=== PATIENT | female | born 1965 | race Caucasian/White ===

== ENCOUNTER 2023-10-30 22:09 | Inpatient (IN) | payer OTHER, SELFPAY ==
[2023-10-30] VITALS (29 sets, daily range): BP systolic 69–127; BP diastolic 36–72; BMI 21.0
[2023-10-30 18:22] LABS: Hematocrit 23.8 % (37.0-47.0); Hemoglobin 8.7 g/dL (12.0-16.0); Mean Corp Hgb Conc. 36.6 g/dL (33.0-37.0); Mean Corpuscular Hgb 32.5 pg (27.0-31.0); Mean Corpuscular Volume 88.8 fL (81.0-99.0); Mean Platelet Volume 9.7 fL (7.4-10.4); Platelet Count 340 10^3/uL (130-400); Red Blood Cell Count 2.68 10^6/uL (4.20-5.40); Red Cell Dist. Width 13.1 % (11.5-14.5); White Blood Cell Count 32.1 10^3/uL (4.8-10.8)
[2023-10-30 18:38] LABS: % Basophils 0.5 % (0-2); % Immature Granulocytes 1.2 % (0-0.5); % Lymphocytes 2.3 % (20.5-51.1); Absolute Basophils 0.2 10^3/uL (0-0.2); Absolute Immature Granulocytes 0.4 10^3/uL (0-0.05); Absolute Lymphocytes 0.7 10^3/uL (1.2-3.4); Absolute Monocytes 0.3 10^3/uL (0.1-0.6); Absolute Neutrophils 30.5 10^3/uL (1.4-6.5); Nucleated Red Blood Cells % 0 %
[2023-10-30 18:39] LABS: ALT (SGPT) 92 U/L (0-35); AST (SGOT) 176 U/L (14-36); Albumin 3.6 g/dl (3.5-5.0); Alkaline Phosphatase 98 U/L (38-126); Blood Urea Nitrogen 22 mg/dl (7-17); Calcium 8.9 mg/dl (8.4-10.2); Carbon Dioxide 20 mmol/L (22-30); Chloride 99 mmol/L (98-107); Glucose 140 mg/dl (70-99); Potassium 2.6 mmol/L (3.5-5.1); Sodium 132 mmol/L (135-145); Total Bilirubin 1.9 mg/dl (0.2-1.3); Total Protein 6.3 g/dl (6.3-8.2); eGFR 43.88
[2023-10-30 19:40] LABS: Iron 20 ug/dl (37-170); Magnesium 1.5 mg/dl (1.6-2.3)
[2023-10-30] MEDS: NSS 1000 IV ×3 (19:46→23:14)
[2023-10-30] MEDS: LOW STRENGTH ASPIRIN 324 MG PO (19:47)
[2023-10-30 19:49] LABS: Percent Saturation 7 % (20-50); Total Iron Binding Capacity 257 ug/dl (265-497)
[2023-10-30] MEDS: PROTONIX IV 80 MG IV (19:49)
[2023-10-30] MEDS: NITROSTAT (SUBLINGUAL) 0.4 MG SL (19:49)
--- NOTE | 2023-10-30 20:04 | ED.GENMED ---
History of Present Illness
General
Chief Complaint: Abnormal Lab Value
Source: patient and records
Exam Limitations: none
Time Seen by Provider: 10/30/23 18:51
Nursing documentation reviewed up to this point in time: agreed with
History of Present Illness
History of Present Illness:
Patient is a 57-year-old female who presents to the emergency department with chills and fatigue for the past 10 days with nausea and dry heaves. Patient denies hematemesis. Patient has had intermittent epistaxis for the past few months the last
being 2 nights ago from the left nostril. 8 days ago the patient while getting a manicure passed out was taken to the hospital. Patient has a history of hypokalemia and was found to be low again and reportedly had 2 bags of potassium at another
hospital. Patient had increased anxiety and signed out AMA. Patient is mildly anxious at this time. Patient had a temp of 100.7 at her doctor's office and now is reporting chills. Patient feels short of breath and states her chest hurts in
between breasts. Patient has noticed her weight increasing but denies any edema. Patient does have a history of hypertension but denies diabetes or cholesterol elevations. Patient is a ex-smoker. Patient's father at 52 of a massive ME.
Patient denies any melena or hematochezia. Patient denies diarrhea or constipation. Patient denies any symptoms. Patient had been on valsartan and hydrochlorothiazide but that was stopped 8 days ago. Patient also has had a cough that seems to
be improving of thick mucus
Past History
Past History
ED Past Medical History: Arrthythmia, HTN and Other (Kidney stones, migraines, neuropathy)
ED Past Surgical History: and Orthopedic
Social History
Tobacco: Former smoker
Alcohol: Occasional
Drug: None
Personal:
Living: with family
Employment: Employed
Review of Systems
Review of Systems
All Other Systems: ROS reviewed and negative except as documented in HPI and ROS
Constitutional: Reports fever, weight gain, fatigue and chills
EENT: Reports other (Epistaxis)
Respiratory: Reports cough and trouble breathing
Cardiac: Reports chest pain; Denies diaphoresis, palpitations or syncope
ABD/GI: Reports nausea, vomiting and anorexia; Denies abdominal pain, diarrhea, constipated, bloody stools or black stools
: Reports no symptoms
Musculoskeletal: Reports no symptoms
Skin: Reports no symptoms
Neurological: Reports no symptoms
Hematologic/Lymphatic: Reports no symptoms
Psychiatric: Reports no symptoms
Phy Exam
Physical Exam
Physical Exam:
Physical Exam
General: moderate distress, alert and appropriate, well nourished, well hydrated
HENT: Normocephalic, supple with no lymphadenopathy, no thyromegaly
Eyes: Clear sclera, conjuctiva without injection
Heart: Regular rhythm and rate. No S3, S4. No murmur. No NVD, bruit
Lungs: No respiratory distress, no stridor, lung sounds are coarse but clear and equal bilaterally, chest wall symmetrical and nontender
Abdomen: Soft, mild to moderate midepigastric tenderness without guarding or rebound, no organomegaly, no CVA tenderness, BS good. Rectal shows good sphincter tone and dark brown stool which is Hemoccult negative
Neuro: Alert and oriented x 3, CN II - XII intact, no motor focality, no cerebellar dysfunction
Skin: no rash
Psychiatric: well kept. interactive and cooperative
Extremities: No edema, cyanosis, tenderness, Good and equal peripheral pulses.
Course
Orders/Labs/Results
Orders:
Orders
10/30/23 18:00
Electrocardiogram (*1) Urgent
Reason for Study: Chest Pain
EKG- Treatment ONCE
10/30/23 18:11
Complete Blood Count/With Diff Urgent
Comprehensive Metabolic Panel Urgent
Ferritin Urgent
Comment: ADD ON
Folate Urgent
Comment: ADD ON
Iron Urgent
Comment: ADD ON
Magnesium Urgent
Comment: ADD ON
Total Iron Binding Urgent
Comment: ADD ON
Troponin I Urgent
Vitamin B12 Urgent
Comment: ADD ON
10/30/23 18:53
Add On- LAB Urgent
Tests Added?: magnesium, iron, TIBC, ferritin, folate, Vit B12
10/30/23 19:08
Type+Screen Urgent
10/30/23 19:26
Urinalysis Reflex To Culture Urgent
10/30/23 19:31
0.9% Sodium Chloride 1000 ml [Nss] 1,000 ml IV BOLUS
Aspirin Chewable [Low Strength Aspirin] 324 mg PO NOW STA
Nitroglycerin Sublingual [Nitrostat (Sublingual)] 0.4 mg SL NOW STA
Pantoprazole [Protonix IV] 80 mg IV NOW STA
10/30/23 19:39
Lactic Acid Q4H
Comment: CANCEL 2nd LACTIC ACID IF 1st LACTIC ACID IS LESS THAN 2
Blood Culture Urgent
JEANNIE Source: Blood/Venous
Specimen Description:
10/30/23 19:47
Heparin 4,000 units IV NOW STA
10/30/23 19:[address] Non Medication Order As Directed
Physician Order: PTT 6 hours after initial start of Heparin infusion
CR Chest Portable - 1 View Urgent
Comment:
Reason For Exam: sob
Reason Study Needs to be Portable: Patient Unstable
10/30/23 19:55
Blood Culture Routine
JEANNIE Source: Blood/Venous
Specimen Description:
Ibuprofen [Motrin] 600 mg PO NOW STA
Lorazepam [Ativan] 1 mg IV NOW STA
Magnesium Sulfate 2 Gram/50 ml [Magnesium Sulfate] 2 gram in 50 ml IV NOW
Ondansetron Injectable [Zofran] 4 mg IV NOW STA
Potassium Chloride [KCl] 40 meq PO NOW STA
10/30/23 19:57
PTT Urgent
Comment: Obtain baseline before beginning heparin infusion if not already collected
10/30/23 20:00
Heparin 85153 Units/250 ml 25,000 units in 250 ml IV PER PROTOCOL
Weight to be used for heparin protocol in kilograms (kg):: 73.1
Protocol:: Cardiac Tx/Acute Coronary
PTT Goal Range to be used:: PTT 73 to 111 seconds
Order type:: Initial
INITIAL Infusion Dose (UNITS/KG/hr) & then follow protocol:: 12 units/kg/hr
Infusion Dose in UNITS/hr & then follow protocol (UNITS/hr):: 900
INFUSION RATE in mL/hr & then follow protocol (mL/hr):: 9
PTT less than or equal to 64 seconds:: Increase rate by 200 units/hr (+ 2 mL/hr)
PTT 64.1 to 72.9 seconds:: Increase rate by 100 units/hr (+ 1 mL/hr)
PTT 73 to 111 seconds:: Target Range. No change in rate.
PTT 111.1 to 130.9 seconds:: Decrease rate by 100 units/hr (- 1 mL/hr)
PTT 131 to 199.9 seconds:: HOLD for 1 hr. Then decrease rate by 200 units/hr (- 2 mL/hr)
PTT greater than or equal to 200 seconds:: HOLD for 2 hrs & Notify Provider. Then decrease by 200 units/hr (-
2 mL/hr)
Lab follow-up:: Each change, PTT q6h until 2 consecutive are therapeutic. Then PTT
daily.
10/30/23 20:24
Potassium Chloride [KCl] 40 meq 0.9% Sodium Chloride 250 ml [Nss] 250 ml IV NOW
10/30/23 23:30
Lactic Acid Q4H
Comment: CANCEL 2nd LACTIC ACID IF 1st LACTIC ACID IS LESS THAN 2
Abnormal Lab Results
10/30/23
18:11
WBC 32.1 H 10^3/uL
(4.8-10.8)
RBC 2.68 L 10^6/uL
(4.20-5.40)
Hgb 8.7 L g/dL
(12.0-16.0)
Hct 23.8 L %
(37.0-47.0)
MCH 32.5 H pg
(27.0-31.0)
Abs Immat Gran (auto) 0.4 H 10^3/uL
(0-0.05)
Absolute Neuts (auto) 30.5 H 10^3/uL
(1.4-6.5)
Absolute Lymphs (auto) 0.7 L 10^3/uL
(1.2-3.4)
Immature Gran % 1.2 H %
(0-0.5)
Neutrophils % 95.0 H %
(42.2-75.2)
Lymphocytes % 2.3 L %
(20.5-51.1)
Monocytes % 1.0 L %
(1.7-9.3)
Sodium 132 L mmol/L
(135-145)
Potassium 2.6 L* mmol/L
(3.5-5.1)
Carbon Dioxide 20 L mmol/L
(22-30)
BUN 22 H mg/dl
(7-17)
Creatinine 1.4 H mg/dL
(0.6-1.0)
Glucose 140 H mg/dl
(70-99)
Magnesium 1.5 L mg/dl
(1.6-2.3)
Iron 20 L ug/dl
(37-170)
TIBC 257 L ug/dl
(265-497)
% Saturation 7 L %
(20-50)
Total Bilirubin 1.9 H mg/dl
(0.2-1.3)
AST 176 H U/L
(14-36)
ALT 92 H U/L
(0-35)
Troponin I 6.960 H* ng/ml
10/30/23 18:11
10/30/23 18:11
Vital Signs
Initial and Last Documented VS:
Initial Vital Signs
Temp Pulse Resp BP Pulse Ox
98.2 F 110 20 127/72 98
10/30/23 17:57 10/30/23 17:57 10/30/23 17:57 10/30/23 17:57 10/30/23 17:57
Last Documented Vital Signs
Temp Pulse Resp BP Pulse Ox
99.0 F 111 39 105/53 99
10/30/23 20:00 10/30/23 20:00 10/30/23 20:00 10/30/23 19:49 10/30/23 20:00
*Pulse Oximetry
Patient hypoxic: no
*EKG
Interpreted by ED Provider?: Yes
EKG Intrepretation Date: 10/30/23
EKG Intrepretation Time: 20:09
Interpretation: abnormal
Comparison EKG: changes noted
Heart Rate: 96
Rate: normal
Rhythm: sinus
[place]: normal axis
Interval: normal PA interval and long QT
QRS Pattern: normal QRS
Ischemia: non-specific ST changes
*Principal Associate Interpretation
Rate: tachycardiac
Interpretation: abnormal
Heart Rate: 105
Rhythm: sinus
*Critical Care Note
Total Time (30-74mins, 75-104mins- exclusive of procedures): 45 minutes
Update Note
Update Note:
Patient's white count is high and the etiology could be a stress reaction, infection or possible leukemia. In addition patient's troponin is elevated. Patient has mild renal insufficiency and this could be sepsis however given the longevity of the
patient's symptoms I would not be surprised if this is cardiac. Patient's potassium is low which is in her past medical history but so is her magnesium so that will be corrected. Patient is anemic and whether this is a reflection of the white
count or not. Patient has heme-negative stools. Patient will be anticoagulated. Patient will be admitted
ED Attending Note
-
Portions of this chart may have been created with voice recognition software.� Occasional wrong word or��sound alike� substitutions may have occurred due to the inherent limitations of voice recognition software.
Discharge Plan
Departure
Patient Disposition: Admit
Date of Disposition: 10/30/23
Time of Disposition: 20:31
Admit to: IMU
Admit to doctor: Hospitalist
Presentation/result/management discussed w/ accepting MD/DO: Hospitalist
Patient with high blood pressure during this ER visit?: No
Condition: Serious
Covid-19: Not Applicable
Discharge Problem:
Non-ST elevated myocardial infarction (non-STEMI), Elevated troponin, Leukocytosis, Iron deficiency anemia, Renal insufficiency, Hypokalemia, Hypomagnesemia
Prescriptions:
No Action
acetaminophen 325 mg Tablet
650 mg PO Q3HPRN PRN (Reason: mild pain/fever)
potassium 99 mg Tablet
99 mg PO DAILY
Referrals:
Radha Dixon CRNP [Family Provider] -
Interventions
Interventions:
*Risk Screen - Suicide Last Done: 10/30/23 18:38
*General Assessment Last Done: 10/30/23 18:38
*Neglect/Abuse Screening Last Done: 10/30/23 18:38
*ED COVID-19 Vaccine History Last Done: 10/30/23 18:38
Discharge Date and Time
Print Language: KAZAKH
[2023-10-30] MEDS: ATIVAN 1 MG IV (20:07)
[2023-10-30] MEDS: MAGNESIUM SULFATE 50 IV (20:08)
[2023-10-30] MEDS: MOTRIN 600 MG PO (20:13)
[2023-10-30 20:14] LABS: Lactic Acid 1.1 mmol/L (0.7-2.0)
[2023-10-30] MEDS: ZOFRAN 4 MG IV (20:16)
[2023-10-30] MEDS: KCL 40 MEQ PO (20:16)
[2023-10-30] MEDS: HEPARIN 25000 UNITS/250 ML IV (20:41)
[2023-10-30] MEDS: KCL 270 MEQ IV (20:44)
[2023-10-30] MEDS: HEPARIN 4000 UNITS IV (20:45)
--- NOTE | 2023-10-30 21:11 | EDRN ---
Dr. Cárdenas made aware of BP 76/38, bolus of NSS started.
--- NOTE | 2023-10-30 21:20 | EDRN ---
Admitting PA in room to evaluate patient.
[2023-10-30 21:24] LABS: Folate > 20.0 ng/ml (2.76-20); Vitamin B12 580 pg/ml (239-931)
--- NOTE | 2023-10-30 21:41 | EDRN ---
Admitting Hospitalist in room to evaluate patient
--- NOTE | 2023-10-30 21:54 | HPS.HSE ---
Family Physician
-
Family Physician: Radha Dixon
Chief Complaint
-
Chest Pain
History of Present Illness
Patient is a 57 y/o female with a PMH of hypertension who present to the ED for increased fatigue x 11-12 days. She states that for about 2 weeks she hasn't been feeling well. She admits to nausea without vomiting, anorexia, and diarrhea. She states
about a week ago she was feeling better and went to get a manicure where she passed out and hit her forehead on the table. She was taken to [facility] where she was found to have hypokalemia and received potassium before leaving [place]. The
hypokalemia was determined to be due to HCTZ which she discontinued. She was seen by her PCP and told to stop her losartan as well due to low blood pressure in the office. She also reports intermittent fevers with max temp 100.7. Two days ago she
started having chest tightness and shortness of breath. She admits to increased epistaxis and easy bruising. She denies melena, bloody stool, or hematemesis. She is post-menopausal.
Medical History
Past Medical History
Past Medical History: Reports Other
Additional Past Medical History:
Essential Hypertension
Past Surgical History: Reports Other
Additional Past Surgical History:
Section
Multiple Right Knee Surgeries
Lumbar Laminectomy with Fusion
Social History
Tobacco: Former Smoker (Quit around age 50)
Alcohol: Daily (3oz vodka nightly)
Family History
Family History: Early CAD (Father)
Allergies / Home Medications
Allergies reflects when Allergies were last updated in [facility].
Home Medications with original date entered in [facility]
Allergy/Medication List:
Allergies
Allergy/AdvReac Type Severity Reaction Status Date / Time
morphine Allergy Intermediate Unknown Verified 10/30/23 17:59
codeine [Codeine] Allergy Hives Verified 10/30/23 17:59
erythromycin base Allergy Unknown Verified 10/30/23 17:59
Penicillins Allergy Hives Verified 10/30/23 17:59
Home Medications
acetaminophen 325 mg tablet 650 mg PO Q3HPRN PRN mild pain/fever 10/30/23
potassium 99 mg tablet 99 mg PO DAILY 10/30/23
Review of Systems
-
A 12 point ROS was completed and negative except as noted: Yes
Constitutional: Reports Fever
Respiratory: Reports Trouble Breathing
Cardiac: Reports Chest Pain
Abdomen/GI: Reports Nausea and Anorexia
Physical Exam
Vital Signs
Vital Signs
Temp Pulse Resp BP Pulse Ox
99.0 F 116 22 80/36 95
10/30/23 20:00 10/30/23 21:23 10/30/23 21:23 10/30/23 21:23 10/30/23 21:23
Physical Exam
General: Conversant and Appears in Distress
HEENT: NormoCephalic and Anicteric
Respiratory: Non Labored Respirations and Decreased Breath Sounds (Bilateral bases)
Cardiac: S1/S2, Regular Rhythm and Tachycardia
GI: Soft and Tender (Mild epigastric region without rebound or guarding)
Rectal: Hem Negative (Per ED)
Musculoskeletal: No Clubbing, No Cyanosis and No Edema
Skin: Warm and Dry
Neuro: Awake, Alert, Oriented and Nonfocal/grossly intact
Psych: Anxious
Laboratory Results
-
10/30/23 18:11
10/30/23 18:11
Laboratory Results
APTT 34.0 Sec (23.4-35.0) 10/30/23 19:57
Lactic Acid Cancelled 10/30/23 23:30
Total Bilirubin 1.9 mg/dl (0.2-1.3) H 10/30/23 18:11
AST 176 U/L (14-36) H 10/30/23 18:11
ALT 92 U/L (0-35) H 10/30/23 18:11
Alkaline Phosphatase 98 U/L (38-126) 10/30/23 18:11
Troponin I 6.960 ng/ml H* 10/30/23 18:11
Data Reviewed
-
Diagnostic Radiology: Report Reviewed by me
Lab Data: Labs Reviewed by me
Impression/Plan
-
Septic Shock though source is unclear
-Admit to ICU
-Start Levophed
-Check COVID and Influenza
-Check Procalcitonin
-Check Blood Cultures
-Check urinalysis
-Hold on antibiotics
Elevated Troponin, possibly non-ischemic myocardia injury in setting of sepsis vs NSTEMI
-Consult Cardiology
-Continue heparin drip as started in ED
-Trend Troponin
-Check Echo in AM
Acute Kidney Injury
-Continue IVFs
-Monitor creatinine
Acute/Severe Hypokalemia
Hypomagnesemia
-Replace potassium and magnesium
-Recheck labs later tonight and in AM
Iron Deficiency Anemia, possibly acute blood loss following severe epistaxis
-Start IV iron
-Continue to heme-test stools - Negative in ED
-Trend Hgb
Elevated LFTS, possibly shock liver vs alcohol related
-Continue to trend
Prolonged QT
-Avoid QT prolonging medications
-Recheck ECG in AM after electrolyte correction
Alcohol Use Disorder
-Continue alcohol withdrawal protocol
DVT proph: Heparin Drip
Code Status: Full Code
[2023-10-30 22:21] LABS: COVID-19 Antigen Negative (Negative)
[2023-10-30] MEDS: LEVOPHED 250 IV (22:28)
--- NOTE | 2023-10-30 22:33 | EDRN ---
Pt started on Norepi d/t BP 74/54, MAP-62
[2023-10-30 22:36] LABS: Acetaminophen 36 ug/ml (10-30)
--- NOTE | 2023-10-30 22:39 | W.PN.UPDATE ---
Update Note
Progress Note Update
This is an addendum to the H&P written by Iva Trammell on 10/30/2023. Patient seen and examined independently with PA.
57-year-old female past medical history of hypertension here with several symptoms including generalized fatigue, decreased p.o. intake,, diarrhea, recent syncopal episode. She was recently at [facility] and treated for hypokalemia with
discontinuation of HCTZ and later losartan due to hypotension. She is also been having chest tightness and shortness of breath as well as fevers and chills over the past few days. He also had epistaxis twice with significant amount of blood loss.
# Septic shock, unclear source
-Does have some upper respiratory symptoms, chest x-ray without evidence of pneumonia
-Check COVID, influenza, procalcitonin
-Urinalysis pending
-Hold off antibiotic
-IV fluids
-Levophed as needed
# NSTEMI
-Aspirin, trend troponins, heparin drip, echo, cardiology
-Patient's primary care physician wanted CT PE to rule out pulmonary embolism however patient refusing IV contrast
# Acute kidney injury
-Prerenal
-IV fluids
# Severe hypokalemia/hypomagnesemia likely secondary to alcohol use
# QTc prolongation possibly resulting in syncope
-Replete
# Alcohol use disorder
-Alcohol withdrawal protocol
# Transaminitis secondary to alcohol
# Mixed iron deficiency/anemia of chronic disease secondary to epistaxis
-Hemoccult negative
-IV iron
[2023-10-30 22:55] LABS: Phosphorus 2.9 mg/dl (2.5-4.5)
--- NOTE | 2023-10-30 23:00 | PTCARENOTE ---
Rec'd pt from ER on stretcher & monitor, levophed gtt & heparin gtt, oriented to ICU routine, CHG bath done, pt anxious, cooperative, ST to keep sbp > 9- w/ levophed, see flow sheet for titrations, hep gtt at 900 units/hr, + pulses, no edema, skin
warm/dry, RA, lungs decr in bases, sat 97, + bowel sounds, intermittent nausea, requests no meds at this time, HNV yet- bladder scanned for 334 ml urine
--- NOTE | 2023-10-30 23:10 | W.PN.SEPSIS ---
Sepsis
Vital Signs
Temp Pulse Resp BP Pulse Ox
98.0 F 100 31 85/53 95
10/30/23 22:38 10/30/23 23:00 10/30/23 23:00 10/30/23 23:00 10/30/23 22:50
Physical Exam
Physical Exam:
A focused exam was performed after fluid resuscitation.
Capillary Refill
Lower Extremity:
Demetria Time: Less than 3 sec
Pulse Evaluation
Dorsalis Pedis:
Pulse Evaluation: Present
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
[2023-10-31] VITALS (49 sets, daily range): BP systolic 84–132; BP diastolic 39–87; BMI 21.2
[2023-10-31] MEDS: LR 500 IV (00:34)
--- NOTE | 2023-10-31 00:40 | PTCARENOTE ---
500LR bolus hung per order
[2023-10-31 03:13] LABS: Hematocrit 22.7 % (37.0-47.0); Hemoglobin 8.3 g/dL (12.0-16.0); Mean Corp Hgb Conc. 36.6 g/dL (33.0-37.0); Mean Corpuscular Hgb 33.1 pg (27.0-31.0); Mean Corpuscular Volume 90.4 fL (81.0-99.0); Mean Platelet Volume 10.3 fL (7.4-10.4); Platelet Count 312 10^3/uL (130-400); Red Blood Cell Count 2.51 10^6/uL (4.20-5.40); Red Cell Dist. Width 13.2 % (11.5-14.5); White Blood Cell Count 47.1 10^3/uL (4.8-10.8)
[2023-10-31 03:16] LABS: INR 1.65; PT 19.7 Sec (11.4-14.6)
[2023-10-31 03:30] LABS: ALT (SGPT) 83 U/L (0-35); AST (SGOT) 143 U/L (14-36); Alkaline Phosphatase 101 U/L (38-126); Blood Urea Nitrogen 22 mg/dl (7-17); Calcium 8.1 mg/dl (8.4-10.2); Carbon Dioxide 19 mmol/L (22-30); Chloride 109 mmol/L (98-107); Estimated Creatinine Clearance 45 ml/min; GGTP 82 U/L (12-43); Glucose 143 mg/dl (70-99); Magnesium 1.8 mg/dl (1.6-2.3); Phosphorus 3.1 mg/dl (2.5-4.5); Potassium 3.2 mmol/L (3.5-5.1); Sodium 137 mmol/L (135-145); Total Bilirubin 1.4 mg/dl (0.2-1.3); Total Protein 5.7 g/dl (6.3-8.2); eGFR 40.39
[2023-10-31] MEDS: MAGNESIUM SULFATE 100 IV (03:49)
[2023-10-31] MEDS: LR 1000 IV ×3 (03:50→19:58)
[2023-10-31 03:55] LABS: Procalcitonin > 200.00 ng/ml (0.0-0.25)
[2023-10-31 03:56] LABS: Urine Albumin Trace (Neg - Trace); Urine Bilirubin Negative (Negative); Urine Character Clear (Clear); Urine Color Yellow; Urine Glucose Negative (Negative); Urine Ketone Negative (Negative); Urine Leukocyte 2+ (Negative); Urine Nitrite Negative (Negative); Urine Occult Blood 2+ (Negative); Urine Urobilinogen Negative (Neg - 1+)
[2023-10-31] MEDS: KCL 270 MEQ IV (03:57)
--- NOTE | 2023-10-31 04:00 | PTCARENOTE ---
Sys reviewed, pt diaphoretic, goan & linens changed, bladder scanned for 480 ml, unable to use bedpan, assisted to BSC voided 450ml dark foul smelling krupa urine, ua sent per order, Lauren Miguel np aware of critical lab values, orders rec'd, 40
kcl/250 ml hung over 4 hr for K-3.2, 1 gm mag over 1hr hung for Mag- 1.8, IVF changed to LR at 125ml/hr per order, antibiotics ordered for pro stephanie > 200
[2023-10-31 04:01] LABS: TSH Reflex To Free T4 0.12 uIU/ml (0.47-4.68)
[2023-10-31] MEDS: VANCOCIN 540 MG IV (04:55)
[2023-10-31] MEDS: LEVOPHED 250 IV (05:01)
[2023-10-31] MEDS: STERILE WATER FOR INJECTION 10 ML IV ×2 (05:03→17:50)
[2023-10-31] MEDS: MAXIPIME 2000 MG IV ×2 (05:03→17:51)
[2023-10-31 05:12] LABS: Urine Bacteria Many (Negative); Urine Red Blood Cell 0-2 /HPF (0-2); Urine Squamous Cell 0-2 /LPF (Few); Urine White Cell 26-30 /HPF (0-5)
[2023-10-31 05:20] LABS: Free T4 2.52 ng/dl (0.78-2.19)
--- NOTE | 2023-10-31 07:29 | CON.INTV ---
Consultation
Consultation Request
Date/Time Consultation Requested: 10/31/2023-8 AM
Date/Time Consultation Performed: 10/31/2023-8 AM
Requesting Provider: Hospitalist
Performing Provider: Dr. Pichardo
Reason for Consultation: Sepsis
Medical History
-
Chief Complaint: Sepsis
History of Present Illness:
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
sepsis/shock/critical care management 10/27/2023. She continues to complain of significant epigastric abdominal pain. She has mild nausea. She denies any shortness of breath at rest, chest pain, pleurisy, hemoptysis, chest congestion, leg swelling
or focal weakness. She is anxious. She quit smoking 7 years ago. She vapes all day.
Past Medical History
Past Medical History: None (Hypertension. Anxiety. . Multiple right knee surgeries. Lumbar laminectomy with fusion.)
Social History
Tobacco: Vaping (83-yewc-aiit quit 7 years ago)
Alcohol: Daily
Drug: None
Personal:
Living: With Family
Occupational Exposures: No known tuberculosis exposure
Environmental Exposures: No known asbestos exposure
Family History
Family History: Other (CAD-father)
Allergies / Home Medications
Allergies
Allergy/AdvReac Type Severity Reaction Status Date / Time
morphine Allergy Intermediate Unknown Verified 10/30/23 17:59
codeine [Codeine] Allergy Hives Verified 10/30/23 17:59
erythromycin base Allergy Unknown Verified 10/30/23 17:59
Penicillins Allergy Hives Verified 10/30/23 17:59
Home Medications
�Medication �Instructions �Recorded �Confirmed �Last Taken �Type
acetaminophen 325 mg tablet 650 mg PO Q3HPRN PRN mild 10/30/23 10/30/23 Unknown History
pain/fever
potassium 99 mg tablet 99 mg PO DAILY 10/30/23 10/30/23 Unknown History
Review of Systems
-
Unable to Obtain full review of systems at this time due to: Other (Per HPI)
Vitals / Labs / Diagnostic Testing
Vital Signs
Temp Pulse Resp BP Pulse Ox
98.9 F 82 30 100/55 94
10/31/23 07:10 10/31/23 06:00 10/31/23 06:00 10/31/23 06:00 10/31/23 05:45
Lab Data
10/31/23 02:57
Laboratory Results
10/30/23 10/31/23 10/31/23
19:57 02:56 02:56
PT 19.7 H Cancelled
INR 1.65
APTT 34.0
10/31/23
02:56
PT
INR Cancelled
APTT 96.0 H
Microbiology
10/30/23 21:57 Nasal Swab Influenza Types A & B (FELIPE) - Final
Negative for Influenza A & B, NAAT
Negative results must be combined with clinical observations
and patient history.
Nucleic Acid Amplification test (NAAT)performed on the
[employer] platform.
Diagnostic Testing:
Physical Exam
-
Exam:
Well-nourished and well-developed in no apparent distress
HEENT-atraumatic, normocephalic
Neck-supple, no JVD, no bruit
Heart-regular rate and rhythm-no murmurs, rubs or gallops
Chest-clear to auscultation, no wheezes, crackles
Back-no tenderness
Abdomen is soft, tender in the epigastric area with mild guarding but no rebound
Extremities-no cyanosis, clubbing, edema and good peripheral pulses
Integument-intact, no rashes, lesions or ecchymosis
Neurology-alert and oriented, nonfocal motor and sensory exam
Assessment
-
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
sepsis/shock/critical care management 10/27/2023.
Sepsis with shock unresponsive to fluids requiring pressors
Recent syncope-evaluated at [facility] earlier this week
Abdominal/epigastric pain
Bacteremia-Klebsiella pneumoniae-10/30/2023
Elevated troponin-suspect non-STEMI
ROSA
Profound leukocytosis-WBC 47,000
Metabolic acidosis
Lactic acidosis
Mild hyperglycemia
Hypokalemia
Anemia-iron deficiency
Elevated LFTs
Elevated acetaminophen level-36
Prolonged QT
Alcohol use disorder
Markedly elevated procalcitonin-greater than 200-in the setting of ROSA
TSH low-0.12 with elevated free T4-rule out hyperthyroid
EF reduced 45-50%
Moderate mitral regurgitation
Conditions present prior to admission:
Hypertension.
Anxiety.
Pneumothorax right side 23 years ago-iatrogenic during 'nerve block'
Former hhikji-39-swlc-year quit 50 years old
. Multiple right knee surgeries. Lumbar laminectomy with fusion.
Plan
Admit patient to medical intensive care unit for persistent hypotension despite fluid resuscitation requiring pressors
Supplement oxygen as needed
High flow oxygen if needed
BiPAP if necessary
Intubate and mechanically ventilate if necessary
Aspiration precautions
Nebulizers if needed
Obtain cultures
Blood cultures with Klebsiella
Empiric antibiotics
Infectious disease consultation pending
Monitor leukocytosis
Check C. difficile
Fluid resuscitation with 30 mL/kg crystalloid-preferably lactated ringer-(less ROSA) with subsequent boluses as needed
Monitor lactate
Follow CVP if possible
Attempt noninvasive bedside tissue perfusion evaluation to see if fluid bolus responsive
Measure pulse pressure and stroke volume variation if patient on ventilator, passively breathing without arrhythmia and with temporary large tidal volume ventilation and if > 13% then likely fluid bolus responsive
If patient active then consider measuring bedside leg lift for 3 minutes and if cardiac output increases or if there is a rise of 2-4 on end-tidal CO2 then fluid bolus
If bedside ultrasound available then measure IVC diameter variation to evaluate for fluid bolus responsiveness
Begin pressors as needed for MAP goal of 65-Norepinephrine first, then Vasopressin and consider Angiotensin II if continues to be hypotensive
Consider methylene blue if available-specific inhibitor of induced nitric oxide synthase iNOS and its downstream enzyme soluble guanylate cyclase-noninferiority study shown to reduce time to vasopressor discontinuation, decreased ICU length of stay,
hospital stay but no change in mortality-published Critical Care 06/19/2022
If persistently hypotensive then consider checking random cortisol-hydrocortisone if random less than 3, if 3-15 then consider ACTH stimulation test
If persistently hyperthermic then correcting hyperthermia can decrease pressor requirements, increased chances of reversal of shock and decrease mortality
With significant epigastric pain and gram-negative bacteremia obtain CT abdomen
PPI
Trend LFTs
Elevated acetaminophen level noted-no intentional overdose by history, was taking Tylenol for pain
Consider GI evaluation
Significantly elevated WBCs-possible leukemoid reaction versus related to infection-can be significantly elevated with with C. difficile as well-pending
Consider hematologic evaluation if does not improve
Consider nephrology evaluation if renal function does not improve
Trend troponin
Echocardiogram noted-possible PA preadmission
Consider cardiac catheterization
Significant anxiety
Consider psychiatric consultation
Ongoing smoking cessation counseling
Vaping cessation counseling ongoing
DVT prophylaxis
Early nutrition if possible
Early mobilization/bedside range of motion
Outpatient pulmonary [id number], low-dose lung cancer screening CT, ongoing smoking and vaping cessation counseling
Critical care statement: A total of 55 minutes of critical care time was provided for this patient today. This includes management of unstable vital signs, evaluation of the patient at bedside, reviewing the patient's pertinent medical records
including radiographs, microbiology, laboratory evaluations, and discussion with primary team, consultants, pharmacy, nutrition, physical therapy, case management, charge nurse, critical care nursing, and respiratory therapy.
Diagnostic data:
Chest x-ray 01/15/2018-emphysema, no acute chest pathology
Chest x-ray 06/04/2018-rib x-rays as well, lungs compatible with underlying emphysema, no focal airspace disease, no displaced left-sided rib fractures
Chest x-ray 10/30/2023-NAD
Blood culture 10/30/2023-positive Klebsiella pneumonia
Echocardiogram 10/27/2023-EF 45-50%, mild to moderate mitral regurgitation, PA systolic estimated 35-40
Data Reviewed
-
EKG: Report reviewed by me
Radiology: Report reviewed by me
Ultrasound: Report reviewed by me
Medical Tests (Nuc Med, Echo etc): Image personally visualized and interpreted
Old Records: Reviewed
Critical Care Time (in minutes): 55
--- NOTE | 2023-10-31 07:45 | PTCARENOTE ---
Assumed care of patient. Pt rec'd sleeping. at bedside and attempted to wake pt. Pt screaming...'get away from me'...'you are a dirty person'...'you aren't a doctor'. Will not allow physical assessment by RN or MD. Pt pinching and
digging nails into staff arms. Confused...agitated. Pt on med sitter...safe environment confirmed. Will continue to monitor closely.
--- NOTE | 2023-10-31 08:07 | CON.CAR ---
Consultation
Consultation Request
Date/Time Consultation Requested: 10/31/2023 8 AM
Date/Time Consultation Performed: 10/08/2023 807
Requesting Provider: Hospitalist
Performing Provider: Dr. Thornton
Reason for Consultation: Abnormal troponin
Medical History
-
History of Present Illness:
57-year-old woman who was admitted to the ICU with suspected sepsis.
Patient had a patient not felt well for about 12 days. On 10/19/2023 she states she had dry heaves and the chills at night chest felt sore to touch. She continued to have dry heaves and and chills throughout the weekend and generally felt fatigued.
She was taken Tylenol for her fever. She started to feel better and went for a nail appointment and while seated in the chair had a syncopal event she was evaluated at [facility] hospitalization was recommended but she said she had anxiety and
left AGAINST MEDICAL ADVICE. Potassium was low so she received potassium replacement and HCTZ was discontinued apparently losartan was also discontinued. She continued to have issues with daily chills but denied having recurrent chest discomfort
or shortness of breath no additional abdominal pain. No rash. Patient eventually saw her PCP and both PCP and family convince her to go to the hospital.
Labs notable for leukocytosis with white blood cell count 47. Severe anemia with a hemoglobin 8.7 on admission and currently 8.38.7 and currently 8.3. Hypokalemia with potassium of 2.6. Initial troponin 6.9 which is since trended down and
creatinine 1.5.
She has not had chest discomfort she has had some shoulder discomfort initially points to her right shoulder but she says she sometimes has in the left shoulder. No abdominal pain she does have some ongoing nausea.
No prior cardiac history
Previous history of smoking quit cigarettes age 50. Still vapes. Family history of coronary disease includes father who had an WI in his 40 or 50s. Patient denies having history of diabetes or hypercholesterolemia.
No recent surgery or dental work..
Past Medical History
Past Medical History: Other (Hypertension)
Past Surgical History: Other (Lumbar laminectomy, , multiple right knee surgeries)
Social History
Tobacco: Former Smoker (Quit around age 50)
Family History
Family History: CAD
Allergies / Home Medications
Allergy/AdvReac Type Severity Reaction Status Date / Time
morphine Allergy Intermediate Unknown Verified 10/30/23 17:59
codeine [Codeine] Allergy Hives Verified 10/30/23 17:59
erythromycin base Allergy Unknown Verified 10/30/23 17:59
Penicillins Allergy Hives Verified 10/30/23 17:59
�Medication �Instructions �Recorded �Confirmed �Type
acetaminophen 325 mg tablet 650 mg PO Q3HPRN PRN mild 10/30/23 10/30/23 History
pain/fever
potassium 99 mg tablet 99 mg PO DAILY 10/30/23 10/30/23 History
Review of Systems
-
All other systems: Negative unless noted
Physical Exam
Vital Signs
Temp Pulse Resp BP Pulse Ox
98.9 F 82 30 100/55 94
10/31/23 07:10 10/31/23 06:00 10/31/23 06:00 10/31/23 06:00 10/31/23 05:45
Lab Results
10/31/23 02:57
Troponin I 4.750 ng/ml H* 10/31/23 02:57
Physical Exam
General: Well Developed, Well Nourished, No Apparent Distress and Other (Anxious sometimes became tearful is describing her symptoms)
HEENT: Normocephalic, Anicteric and Moist Mucous Membranes
Respiratory: Clear, Wheezes and Rhonchi
Cardiac: Regular Rhythm
GI: Soft, Non Tender and Non Distended
Skin: Warm, Dry, Rash (none) and Other (Unable to evaluate nailbeds due to nail amharic on toes and fingers)
Neuro: Awake, Alert and AO x 3
Hematologic/Lymphatic: No Lymphadenopathy
Psych: Other (Anxious at times a bit tearful)
Impression / Plan
-
57-year-old woman with a history of hypertension whose had issues with nausea and vomiting and shaking chills and fatigue for about 12 days. Patient noted to have troponin of 6 which has been trending down since admission also noted to have
significant anemia with hemoglobin 8.3, white blood cell count 4.7 hypokalemia and creatinine 1.3.
Fever/chills. Concerning for sepsis. With combination of issues above including abnormal troponin would also consider the possibility of endocarditis.
-Broad-spectrum antibiotics
-Await culture
-Additional evaluation by primary team for sources of infection
-Echocardiogram.
.
Abnormal troponin. Elevation of 6. Exact etiology unclear. She had some chest discomfort last weekend which she makes it sound as if it was musculoskeletal and related to heaves although she is not currently having that symptom she is also had
some shoulder discomfort which is atypical for coronary ischemia. Unclear if patient may have had an WI prior to admission with trending down of troponin. Also would consider other factors including sepsis myocarditis or endocarditis which could
contribute.
-Echocardiogram
-Cultures.
.
Syncope. Occurred prior to evaluation at [facility] earlier this week. May have been related to hypotension and volume depletion in the setting of suspected infection, nausea and vomiting, diuretic and antihypertensive medication. Continue to
monitor blood pressures.
.
Hypokalemia. Patient had previously been on HCTZ also has had recurrent nausea and vomiting. Replacement directed by primary team
.
Prolonged QT. Replace potassium and reassess avoid medications that prolong QT
.
Leukocytosis. White blood cell count 47. May be reactive related to issues noted above. However with combination of leukocytosis and marked anemia need to consider possibility of underlying hematologic condition. Evaluation as directed by
primary team
.
Anemia. Etiology unclear. No evidence of acute bleeding. Continue to evaluation as directed by the hospitalist.
.
Anxiety. Patient appears a bit anxious. Apparently this impacted her decision to leave [facility]. At times appears anxious and a bit tearful but cooperative. Management directed by primary team
Data Reviewed
-
EKG: Report Reviewed by me
Radiology: Report Reviewed by me
Medical Tests (Nuc Med, Echo etc): Discussed with Physician
Labs: Discussed with Physician
--- NOTE | 2023-10-31 08:15 | PTCARENOTE ---
Assumed care of patient. Pt rec'd A&Ox3.. pleasant. Anxious and tearful at times. On MSAS...max 1-2. JOHN's. S1 S2 reg w/ NSR. +PP. No edema. Knee hi SCD's on. On R/A...sats 93%. Lungs clear...diminished in bases. Frequent dry NPC.
Abdomen round...+BS. On clear liquid diet. Voids in bathroom. Dempsey skin....ecchymotic over left eye. IVF's, KCL rider, levophed gtt, and heparin gtt infusing....see interventions. VSS. Call reynoso within reach. Will continue to monitor closely.
[2023-10-31] MEDS: PROTONIX IV 40 MG IV (08:23)
[2023-10-31] MEDS: NSS (PRESERVATIVE FREE) 10 ML IV (08:23)
[2023-10-31] MEDS: THIAMINE INJECTION 200 MG IV ×2 (08:25→19:58)
[2023-10-31] MEDS: FOLVITE 1 MG PO (08:26)
[2023-10-31] MEDS: LOW STRENGTH ASPIRIN 81 MG PO (08:27)
--- NOTE | 2023-10-31 08:30 | PTCARENOTE ---
Pt calmer at present. Son at bedside and pt is directable by son. Agreeable to physical assessment...following commands. Knows name, son's name, and understands that she is in the hospital. Able to take po meds whole w/ sips of OJ/water. S1 S2
reg w/ NSR/prolonged QT on monitor. +PP. Trace LLE. Rec'd on 8L MFNC...able to decrease O2 to 5L MFNC...sats 92% and above. Lungs diminished in bases w/ fine crackles R>L. Occasional dry NPC. Abdomen round...+BS. Breakfast ordered. [place]
draining clear yellow urine. Skin pale in color. Intact sacral optifoam. Heparin gtt infusing @ 1000 units/hr. VS documented. Family at bedside...updated on plan of care. Bed alarm on.
--- NOTE | 2023-10-31 10:44 | CON.ID ---
Consultation
-
Date/Time Consultation Requested: 10/31/23 8:48
Date/Time Consultation Performed: 10/31/23 10:44
Requesting Provider: Dr Branham
Performing Provider: Dr Adams
Reason for Consultation: septic shock
Chief Complaint / Past History
Chief Complaint
Chest Pain
History of Present Illness
Ms Pro is a 57 year old female with past medical history of HTN and anxiety. She is a challenging historian in that she persistently provides her own interpretation of the causes of symptoms when queried and her responses can be long and
tangential; it can be difficult to get her to clarify as to the actual symptoms she is expressing. Her history to me is different from what she provided to other providers in the ER. RN at the bedside and Cardiology team are also noticing that her
story seems inconsistent.
Told our RN that she was previously on high doses of anxiolytics with a psychiatrist which she has now self stopped and substituted to marijuana only.
My impression of her history is as follows. She believes symptoms began that starting last February she had some L shoulder pain and back pain that she attributed to the flu shot. Additionally she felt some nasal stuffiness that was very
concerning to her. No cough or sputum production at that time. She started mucinex on her own and felt that 'slowly through time' helped with the nasal congestion. Then in June of this year she again felt that she had L shoulder pain and 'my
chest was just so full of mucous' but she denied productive cough at that time. Saw here PCP who diagnosed her with bronchitis. Covid ag testing neg x2 at that time. By her report she was prescribed a zpac x5 days and 10 day course of doxycycline
concomitantly. She took both. Then in july/august she expressed a blood clot from her L nostril, no ongoing epistaxis. She is not up to date on routine cancer screenings. She had a pap smear. No low dose CT chest yet though PCP has recommended
it for 20 pack year smoking history. Never had a mammogram. Had a colonoscopy at some point at another institution, she believes she is due for a repeat.
Drinking 3 oz of EtOH per day
Current issue seems to have begun about 1 week ago with persistent shaking chills and nausea with dry heaves for about 3 days. She adamantly denies diarrrhea to me 'Isidra told folks multiple times no diarrhea.' No flank pain, dysuria, urgency or
frequency. [place] a bit better but then fainted, struck her head and was taken to [facility] ER where a CT head was reportedly nonrevealing. She was found to have hypokalemia, was was told to stop HCTZ. She left AMA. Saw her PCP who noted hypotension
in the office and additionally stopped losartan. Since then she has developed fevers to 100.7, then developed chest tighteners, and shortness of breath. She presented here for further assessment.
Since arrival here she has been afebrile, bp unstable requiring norepi peaked at 10 mcg/min now down to 4 mcg/min, wbc 32 on arrival now 47, hgb 8.3, plt 312, K on arrival 2.6 now 3.2, cr 1.4 best available baseline is from 2018 and 0.6, na 132 now
137, PT 19.7, INR 1.65, ptt 96 (on heprin), lactic acid 1.1, t bili 1.4, ggt 82, ast 143, alt 83, alk phos 101, tropes began at 6.9 and now 4.7, no eos on the diff, procal was sent and is >200, CXR no acute CP process, ua: 26-30 wbc/hpf and many
bacteria, few squamous cells, single blood culture with K pneumoniae. Echo with possible apical hypokinesis. EKG without definite AR. Currently on vancomycin and cefepime.
Past History
Additional Past Medical History:
HTN
Anxiety
Additional Past Surgical History:
Lumbar spinal fusion - she is unsure of the levels
R knee surgery with screws
C section
Allergy History:
morphine Allergy (Intermediate, Verified 10/30/23 17:59)
Unknown
codeine [Codeine] Allergy (Verified 10/30/23 17:59)
Hives
erythromycin base Allergy (Verified 10/30/23 17:59)
Unknown
Penicillins Allergy (Verified 10/30/23 17:59)
Hives
Medications Reviewed: Yes
Social History
Tobacco: Former Smoker (20 pack year history)
Alcohol: Daily (3oz vodka nightly)
Drug: None (adamantly denies any drug use beyond marijuana; endorses very stressful life circumstances but doesnt elaborate. Shares that her daughter in law is supportive.)
Family History
Family History: Sudden (due to AR - father)
Review of Systems
Review of Systems
General: Chills; Negative Fever
All systems: All other systems were reviewed and were negative
Vital Signs
Temp Pulse Resp BP Pulse Ox
98.9 F 82 30 100/55 94
10/31/23 07:10 10/31/23 06:00 10/31/23 06:00 10/31/23 06:00 10/31/23 05:45
Physical Exam
Physical Exam
Constitutional: No Acute Distress and Non-toxic
Cardiovascular: Regular Rate and S1/S2; Negative Murmur or Rub
Pulmonary: Clear and Symmetric; Negative Wheezes, Rales or Rhonchi
Gastrointestinal: Soft, Non Tender, Non Distended and Normal Bowel Sounds
Genito-Urinary: Negative Suprapubic Tenderness or CVA Tenderness (even with firm percussion)
Skin: Warm and Dry; Negative Rash or Jaundice
Neurological: Other (becomes markedly tearful when I ask if she has had stress in her life recently)
Lab / Diagnostic Study Results
10/31/23 02:57
Abs Immat Gran (auto) 0.4 10^3/uL (0-0.05) H 10/30/23 18:11
Absolute Neuts (auto) 30.5 10^3/uL (1.4-6.5) H 10/30/23 18:11
Absolute Lymphs (auto) 0.7 10^3/uL (1.2-3.4) L 10/30/23 18:11
Absolute Monos (auto) 0.3 10^3/uL (0.1-0.6) 10/30/23 18:11
Absolute Basos (auto) 0.2 10^3/uL (0-0.2) 10/30/23 18:11
Immature Gran % 1.2 % (0-0.5) H 10/30/23 18:11
Neutrophils % 95.0 % (42.2-75.2) H 10/30/23 18:11
Lymphocytes % 2.3 % (20.5-51.1) L 10/30/23 18:11
Monocytes % 1.0 % (1.7-9.3) L 10/30/23 18:11
Eosinophils % 0.0 % (0-6) 10/30/23 18:11
Basophils % 0.5 % (0-2) 10/30/23 18:11
PT 19.7 Sec (11.4-14.6) H 10/31/23 02:56
PT Cancelled 10/31/23 02:56
INR 1.65 10/31/23 02:56
INR Cancelled 10/31/23 02:56
Lactic Acid Cancelled 10/30/23 23:30
Procalcitonin > 200.00 ng/ml (0.0-0.25) H* 10/31/23 02:56
Ur Squamous Epith Cells 0-2 /LPF (Few) 10/31/23 03:35
Microbiology Results
Micro:
10/30/23 19:39 Blood Culture - Preliminary
Blood/Venous Klebsiella pneumoniae
Gram Stain - Final
10/31/23 03:35 Urine Culture - Pending
Urine
10/31/23 02:56 Blood Culture - Pending
Blood/Venous
10/30/23 21:57 Influenza Types A & B (FELIPE) - Final
Nasal Swab Negative for Influenza A & B, NAAT
Negative results must be combined with clinical observations
and patient history.
Nucleic Acid Amplification test (NAAT)performed on the
[employer] platform.
Assessment / Plan
Shock - septic, may also have a component of cardiogenic shock
Klebsiella bacteremia - possible source
Leukocytosis - borderline Leukemoid Reaction
Long QTc
Anxiety
- blood cultures x3, first set with klebsiella which may be a urinary source
- repeat blood cultures are not usually needed for GNR bacteremia
- if urine culture is not revealing then I will purse other sources
- would be unusual for a UTI to cause this degree of illness, suspect she may have more than one illness (such as takotsubo physiology or AR) which is also driving the shock. UA is positive with minimal squamous cells, will follow up the urine
culture - UTI can occasionally present with nausea as the most prominent symptom. She does not have CVA tenderness to suggest pyelonephritis at this time.
- TTE complete: mildly reduced EP with anterior and apical hypokinesis, no vegetation - patient was under enough stress/anxiety that she left another hospital AMA, also fainted, - takotsubo physiology and possible component of cardiogenic shock? AR?
assessment per cardiology
- has prn anxiolytics for msas, might also consider other forms of emotional support - perhaps a psychiatry consult if she is agreeable
- I am verbally told that the primary team already plans a CT abdomen - will follow up
- if there is liquid stool check C diff ag/toxin given borderline leukemoid reaction
- manual diff
- agree that this may be reactive, further workup pending course
- procalcitonin not interpretable in the setting of ROSA and also significant shock, please do not resend while patient in [place].
- continue cefepime - appears to be clinically responding
- stop vancomycin
- follow clinically; patient is critically ill
Care Review
Plan reviewed with: Nurse (compared histories which had discrepancies) and Physician (Dr Thornton - echo)
--- NOTE | 2023-10-31 11:00 | W.PN.UPDATE ---
Update Note
Progress Note Update
Echocardiogram with mildly reduced left ventricular function with estimate ejection fraction 45 to 50%. There were some focal wall motion abnormalities with some distal septal, distal anteroseptal, distal anterior and apical hypokinesis. With
combination of troponin and the above findings it is possible patient had NE prior to presentation. No clear evidence of endocarditis on echo images. There was mild to moderate mitral regurgitation. Would work on the presumption that wall motion
abnormalities represent recent infarct although other possibilities do exist .. Takotsubo can cause troponin elevation and wall motion abnormalities involving the distal LV but echo findings are not classic for Takotsubo
-Continue to monitor on telemetry
-Continue aspirin
-Add beta-jese when blood pressure will allow
-Optimize treatment of anemia.
-Continue treatment for sepsis. Note blood culture from 10/30/2023 with Klebsiella
-Would eventually consider cardiac catheterization but patient is not currently having chest discomfort and requires additional treatment for sepsis and anemia.
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
--- NOTE | 2023-10-31 12:00 | PTCARENOTE ---
No major changes in physical assessment since am. LR and heparin gtts infusing. VS documented. Call reynoso within reach. Will continue to monitor.
[2023-10-31] MEDS: OMNIPAQUE 50 ML PO (13:06)
[2023-10-31] MEDS: FERRLECIT 110 MG IV (13:07)
[2023-10-31 13:46] LABS: Blood Urea Nitrogen 17 mg/dl (7-17); Calcium 7.7 mg/dl (8.4-10.2); Carbon Dioxide 16 mmol/L (22-30); Chloride 109 mmol/L (98-107); Estimated Creatinine Clearance 61 ml/min; Glucose 113 mg/dl (70-99); Magnesium 1.8 mg/dl (1.6-2.3); Potassium 3.5 mmol/L (3.5-5.1); Sodium 133 mmol/L (135-145); eGFR 58.61
--- NOTE | 2023-10-31 14:25 | W.PN.HOSP.TC ---
Today's Communication/Plan
-
Abdominal pelvis CT with oral contrast--continue to monitor vital signs-continue cefepime-continue [id number] on urine culture result
Assessment / Plan
Assessment / Plan
57 year old female
#Septic shock: bp unstable requiring Levophed peaked at 10 mcg/min now down to 4 mcg/min, possible cardiogenic shock component--wbc 32 on arrival now 47. blood culture x 3, first set positive for Klebsiella bacteremia (may be urinary
source)--CXR:No acute cardiopulmonary process--Await urine culture. appreciate ID--DC Vanco, continue cefepime--appreciate cardiology--troponin downtrending--TTE shows mildly reduced left ventricular function with estimate ejection fraction 45 to
50%.With combination of troponin and the above findings it is possible patient had AL prior to presentation. No clear evidence of endocarditis on echo images. Wall motion abnormalities might represent recent infarct although other possibilities do
exist. Takotsubo can cause troponin elevation and wall motion abnormalities involving the distal LV but echo findings are not classic for Takotsubo.Continue aspirin--Add beta-jese when BP will allow-- abdominal pelvis CT with oral contrast
ordered (RUQ pain)
# Hypokalemia: K on arrival 2.6 now 3.5--resolved--continue to replete as needed
# Prolonged QT: Replete potassium and magnesium as needed--avoid medications that prolong QT
#Leukocytosis. White blood cell count 47. May be leukemoid reaction. Continue to trend white cell count for now.
#Anemia: Iron deficiency--etiology unclear. No evidence of acute bleeding. Continue to monitor for significant drop needing possible transfusion.
#Anxiety: Patient is anxious and a bit tearful. Consider psych consult tomorrow.
Anticipated Discharge: > 48 hours
Subjective/Interval History
-
Date of Service: October 31, 2023
Objective Data
-
Labs:
Laboratory Results
10/31/23 10/31/23 10/31/23
02:56 02:56 02:56
WBC
Hgb
Hct
Plt Count
PT 19.7 H Cancelled
INR 1.65 Cancelled
APTT 96.0 H
Sodium Cancelled
Potassium
Chloride
Carbon Dioxide
BUN
Creatinine
Glucose
Calcium
Total Bilirubin
AST
ALT
Alkaline Phosphatase
10/31/23 10/31/23 10/31/23
02:56 02:56 02:56
WBC
Hgb
Hct
Plt Count
PT
INR
APTT
Sodium 137
Potassium Cancelled 3.2 L
Chloride Cancelled 109 H
Carbon Dioxide Cancelled
BUN
Creatinine
Glucose
Calcium
Total Bilirubin
AST
ALT
Alkaline Phosphatase
10/31/23 10/31/23 10/31/23
02:56 02:56 02:56
WBC
Hgb
Hct
Plt Count
PT
INR
APTT
Sodium
Potassium
Chloride
Carbon Dioxide 19 L
BUN Cancelled 22 H
Creatinine Cancelled 1.5 H
Glucose Cancelled
Calcium
Total Bilirubin
AST
ALT
Alkaline Phosphatase
10/31/23 10/31/23 10/31/23
02:56 02:56 02:57
WBC 47.1 H*
Hgb 8.3 L
Hct 22.7 L
Plt Count 312
PT
INR
APTT
Sodium
Potassium
Chloride
Carbon Dioxide
BUN
Creatinine
Glucose 143 H
Calcium Cancelled 8.1 L
Total Bilirubin 1.4 H
AST 143 H
ALT 83 H
Alkaline Phosphatase 101
10/31/23 10/31/23 10/31/23
08:21 12:12 12:50
WBC
Hgb
Hct
Plt Count
PT
INR
APTT 61.0 H
Sodium Cancelled 133 L
Potassium Cancelled 3.5
Chloride Cancelled 109 H
Carbon Dioxide Cancelled 16 L
BUN Cancelled 17
Creatinine Cancelled 1.1 H
Glucose Cancelled 113 H
Calcium Cancelled 7.7 L
Total Bilirubin
AST
ALT
Alkaline Phosphatase
10/31/23
15:15
WBC
Hgb
Hct
Plt Count
PT
INR
APTT Pending
Sodium
Potassium
Chloride
Carbon Dioxide
BUN
Creatinine
Glucose
Calcium
Total Bilirubin
AST
ALT
Alkaline Phosphatase
Vital Signs:
Vital Signs
Temp Pulse Resp BP Pulse Ox
99.4 F 101 26 115/74 94
10/31/23 11:15 10/31/23 13:45 10/31/23 13:45 10/31/23 13:30 10/31/23 13:45
I&O
10/30/23 10/31/23 11/01/23
06:59 06:59 06:59
Intake Total 2835.8 / 3063.6 1545.3 / 1545.3
Output Total 450 / 450
Balance 2385.8 / 2613.6 1545.3 / 1545.3
--- NOTE | 2023-10-31 14:30 | PTCARENOTE ---
Pt able to finish one full cup of omnipaque. [place] [facility] [place]...voided 600mls of foul smelling tea colored urine. For CT abdomen today.
--- NOTE | 2023-10-31 16:05 | W.PN.UPDATE ---
Update Note
Progress Note Update
I saw and evaluated the patient. I reviewed the resident�s note and agree with findings and plan as documented in the resident�s note.
Patient presenting with a septic shock. Still requiring vasopressors as of this morning.
Gram-negative bacilli bacteremia already evident on the blood cultures. She does have abdominal complains of epigastric and right upper quadrant pain where there is also tenderness. Elevated LFTs noted. Denies much of symptoms. No diarrhea.
Mild diarrhea noted. Continue cefepime. DC vancomycin. Consult ID. Obtain a CT of the abdomen pelvis with oral contrast due to ROSA.
ROSA suspect function of hemodynamics and infection. Improving. Continue with fluid support.
Anemia which is normocytic noted. No obvious external bleeding. Heme test stools and follow.Iron studies suggest LONNIE based on severely low iron saturation of 7% . Hold IV iron for now with infection.
JOANNE ICW RN
JOANNE Jacquard Loom [facility] Tier
Total time spent on today's encounter was 52 minutes which included time spent in counseling the patient regarding diagnosis and treatment plan as listed above, goals of care, and symptom management. Case was discussed with nursing staff,
specialists, . All labs and imaging personally reviewed by me. Remainder the time spent in detailed review of previous records, lab data, imaging, and other medical provider documentation.
--- NOTE | 2023-10-31 18:00 | PTCARENOTE ---
O2 2L N/C applied...pt desats to low of 86% while sleeping. Will monitor.
[2023-10-31] MEDS: TYLENOL 650 MG PO (19:58)
[2023-10-31] MEDS: HEPARIN 25000 UNITS/250 ML IV (19:59)
--- NOTE | 2023-10-31 20:00 | PTCARENOTE ---
rec'd patient. assessment as documented. assist x1 to bedside commode. oriented x3, anxious at times. SR/ST on monitor. on 2L NC, spO2 dips while sleeping. denies pain/SOB. PRN tylenol given for fever. heparin gtt and IVF infusing, PTT due at 2200.
call reynoso within reach, care ongoing.
[2023-10-31 22:10] LABS: APTT 87.8 Sec (23.4-35.0)
[2023-11-01] VITALS (35 sets, daily range): BP systolic 91–125; BP diastolic 53–91; BMI 21.2
[2023-11-01] MEDS: STERILE WATER FOR INJECTION 10 ML IV ×3 (05:23→17:15)
[2023-11-01] MEDS: MAXIPIME 2000 MG IV (05:24)
[2023-11-01] MEDS: LR 1000 IV ×2 (05:24→15:08)
[2023-11-01 05:55] LABS: % Basophils 0.3 % (0-2); % Eosinophils 0.8 % (0-6); % Immature Granulocytes 1.2 % (0-0.5); % Lymphocytes 7.9 % (20.5-51.1); % Monocytes 4.3 % (1.7-9.3); % Neutrophils 85.5 % (42.2-75.2); Absolute Basophils 0.1 10^3/uL (0-0.2); Absolute Eosinophils 0.1 10^3/uL (0-0.7); Absolute Immature Granulocytes 0.2 10^3/uL (0-0.05); Absolute Lymphocytes 1.4 10^3/uL (1.2-3.4); Absolute Monocytes 0.8 10^3/uL (0.1-0.6); Absolute Neutrophils 15.1 10^3/uL (1.4-6.5); Hematocrit 18.8 % (37.0-47.0); Hemoglobin 6.8 g/dL (12.0-16.0); Mean Corp Hgb Conc. 36.2 g/dL (33.0-37.0); Mean Corpuscular Hgb 32.4 pg (27.0-31.0); Mean Corpuscular Volume 89.5 fL (81.0-99.0); Mean Platelet Volume 10.2 fL (7.4-10.4); Nucleated Red Blood Cells % 0 %; Platelet Count 296 10^3/uL (130-400); Red Cell Dist. Width 13.2 % (11.5-14.5); White Blood Cell Count 17.7 10^3/uL (4.8-10.8)
[2023-11-01 06:06] LABS: ALT (SGPT) 43 U/L (0-35); AST (SGOT) 46 U/L (14-36); Albumin 2.3 g/dl (3.5-5.0); Alkaline Phosphatase 127 U/L (38-126); Blood Urea Nitrogen 16 mg/dl (7-17); Calcium 7.6 mg/dl (8.4-10.2); Carbon Dioxide 20 mmol/L (22-30); Chloride 110 mmol/L (98-107); Direct Bilirubin 0.5 mg/dl (0.0-0.4); Estimated Creatinine Clearance 61 ml/min; Glucose 109 mg/dl (70-99); Magnesium 1.9 mg/dl (1.6-2.3); Potassium 3.1 mmol/L (3.5-5.1); Sodium 134 mmol/L (135-145); Total Bilirubin 1.1 mg/dl (0.2-1.3); Total Protein 4.7 g/dl (6.3-8.2); eGFR 58.61
--- NOTE | 2023-11-01 06:17 | PTCARENOTE ---
AM Hgb 6.8, ICU CLEANING AND WASHING EQUIPMENT OPERATOR obtained consent and ordered 1u PRBC
[2023-11-01] MEDS: KCL 40 MEQ PO ×2 (06:31→08:21)
--- NOTE | 2023-11-01 08:00 | PTCARENOTE ---
rec'd patient. assessment as documented. assist x1 to bedside commode. oriented x3, anxious at times. SR/ST on monitor. on RA with spO2 94%. denies pain/SOB. heparin gtt and IVF infusing. 1 unit PRBC began. call reynoso within reach, care ongoing.
[2023-11-01] MEDS: LOW STRENGTH ASPIRIN 81 MG PO (08:02)
[2023-11-01] MEDS: FOLVITE 1 MG PO (08:02)
[2023-11-01] MEDS: THIAMINE INJECTION 200 MG IV ×2 (08:03→19:48)
[2023-11-01] MEDS: NSS (PRESERVATIVE FREE) 10 ML IV ×2 (08:03→19:48)
[2023-11-01] MEDS: PROTONIX IV 40 MG IV ×2 (08:03→19:47)
--- NOTE | 2023-11-01 08:15 | W.PN.CD ---
Today's Communication / Plan
-
hold heparin
Hb 6.8 - transfuse PRBC
add low dose beta jese when BP will tolerate
Continued tx of bacteremia per ID
Urology input for ureter stone
Patient will be high risk from cardiac standpoint for urologic procedure but with ongoing sepsis and obstruction will likely need procedure to relieve obstruction and tx infection.
-Continue to treat anemia and continue supportive tx
Impression / Plan
-
57-year-old woman with a history of hypertension whose had issues with nausea and vomiting and shaking chills and fatigue for about 12 days. Patient noted to have troponin of 6 which has been trending down since admission also noted to have
significant anemia with hemoglobin 8.3, white blood cell count 4.7 hypokalemia and creatinine 1.3.
Fever/chills. Concerning for sepsis.
- BC - Klebsiella 10/30/23
- abx and assessmento if source per ID
- abd CT with left ureter stone and hydro
.await urology input.
.
Abnormal troponin. Elevation of 6. Echo with distal septal, distal anteroseptal, distal anterior and apical HK
-Presume CA prior to admit. Takosubo would be a possibility but echo noit classic and this is dx of exclusion.
-Medical therapy limited by BP.
- stop Heparinwith progressive anemai
- tx anemia
- ASA
- BB when BP will tolerate
- eventual cath but will need addtional txof sepsis/bacteremia dn anemia.
Anemia - severe. anemai on admit now Hb 6.8. Drop may be related to volume relacement
- stop IV Heparin
- transfuse PRBC
Ureter stone. patietnw ould be high risk for intervention
- await urology assessement
- abx
- transfuse PRBC
.
Syncope. Occurred prior to evaluation at [facility] earlier this week. May have been related to hypotension and volume depletion in the setting of suspected infection, nausea and vomiting, diuretic and antihypertensive medication. Continue to
monitor blood pressures.
.
Hypokalemia. Improved.
.
Prolonged QT. Replace potassium and reassess avoid medications that prolong QT
- repeat ECG
.
Leukocytosis. White blood cell count 47. improved to 17
.
.
Anxiety. Patient appears a bit anxious. Apparently this impacted her decision to leave [facility]. At times appears anxious and a bit tearful but cooperative. Management directed by primary team
subjective
still with chills. but feels better. nausea resolved. CT with kideney stone and hydronephrosis
Physical Exam
Vital Signs/Labs
Vital Signs
Temp Pulse Resp BP Pulse Ox
99.5 F 91 17 109/58 95
11/01/23 07:20 11/01/23 07:20 11/01/23 07:20 11/01/23 07:20 11/01/23 06:00
10/31/23 11/01/23 11/02/23
06:59 06:59 06:59
Actual Weight 69 kg 69 kg
11/01/23 05:24
11/01/23 05:24
PT 19.7 Sec (11.4-14.6) H 10/31/23 02:56
PT Cancelled 10/31/23 02:56
INR 1.65 10/31/23 02:56
INR Cancelled 10/31/23 02:56
APTT 75.0 Sec (23.4-35.0) H 11/01/23 05:24
Magnesium 1.9 mg/dl (1.6-2.3) 11/01/23 05:24
Free T4 2.52 ng/dl (0.78-2.19) H 10/31/23 02:56
LAB Results
10/30/23 10/30/23 10/31/23
18:11 21:52 02:57
Troponin I 6.960 H* 5.360 H* 4.750 H*
11/01/23
05:24
Troponin I 1.510 H*
Physical Exam
Constitutional: No acute distress and Other (chills)
Cardiovascular: Rhythm & rate is regular
Respiratory: Respiratory effort normal
GI: Soft
Neuro/Psych: Alert and Oriented
Other: Skin
Data Reviewed
-
Date of Service: November 01, 2023
Medical Decision Making: Reviewed Test Results
Echo: Report Reviewed by me
Medical Tests (PFT, Pathology etc): Image Personally Visualized and interpreted
Labs: Labs Reviewed by me
[2023-11-01] MEDS: TYLENOL 650 MG PO (08:24)
--- NOTE | 2023-11-01 08:28 | W.PN.INTV ---
Today's Communication / Plan
Recommendations
Antibiotics
Norepinephrine as needed
Intravenous fluids
Urology evaluation-cystoscopy and left ureteral stent placement today
Psychiatry evaluation
Assessment
-
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
sepsis/shock/critical care management 10/27/2023.
Sepsis with shock unresponsive to fluids requiring pressors
Urosepsis from left ureteral stone
Obstructive uropathy secondary to 8 mm proximal left ureteral stone
Recent syncope-evaluated at [facility] earlier this week
Abdominal/epigastric pain
Bacteremia-Klebsiella pneumoniae-10/30/2023
Elevated troponin-suspect non-STEMI
ROSA
Profound leukocytosis-WBC 47,000
Metabolic acidosis
Lactic acidosis
Mild hyperglycemia
Hypokalemia
Anemia-iron deficiency
Elevated LFTs
Elevated acetaminophen level-36
Prolonged QT
Alcohol use disorder
Markedly elevated procalcitonin-greater than 200-in the setting of ROSA
TSH low-0.12 with elevated free T4-rule out hyperthyroid
EF reduced 45-50%
Moderate mitral regurgitation
Conditions present prior to admission:
Hypertension.
Anxiety.
Pneumothorax right side 23 years ago-iatrogenic during 'nerve block'
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
. Multiple right knee surgeries. Lumbar laminectomy with fusion.
Plan
Remains critically ill with urosepsis
Supplement oxygen as needed
Aspiration precautions
Nebulizers if needed-currently not bronchospastic
Cultures reviewed
Urine culture 10/31/20235848-lzso-ehcmzwff bacilli
Blood culture 10/30/2023-Klebsiella
Blood culture 10/31/2023-positive culture in progress
Blood culture 10/31/2023-no blood parasites
Blood cultures with Klebsiella
Empiric antibiotics
Infectious disease following-correspondence reviewed-continue cefepime-will renally adjust
Monitor leukocytosis-WBCs decreased from 47,000-17,700
Check C. mvusjzphi-tfonwaonggw-hbj producing stool
Decrease IV fluids
Lactate trended
Norepinephrine as needed
CT abdomen 10/31/2023-trace bilateral pleural effusions right greater than left, obstructive uropathy secondary to 8 mm calculus left ureteropelvic junction causing moderate left hydronephrosis, left lower pole nephrolith, gallbladder wall thickening
but no appreciable cholelithiasis, diverticulosis, mild pelvic ascites, trace bilateral pleural effusions, nonspecific mildly enlarged periportal and retroperitoneal lymph nodes
With significant epigastric pain and gram-negative bacteremia obtain CT abdomen
PPI
Trend LFTs-coming down
Elevated acetaminophen level noted-no intentional overdose by history, was taking Tylenol for pain
Consider GI evaluation
Urology evaluation noted
Cystoscopy and left ureteral stent placement 11/01/2023 pending
Significantly elevated WBCs-possible leukemoid reaction versus related to infection-can be significantly elevated with with C. difficile as well-pending
Consider hematologic evaluation if does not improve
Consider nephrology evaluation if renal function does not improve
Trend troponin
Echocardiogram noted-possible ND preadmission
Consider cardiac catheterization
Cardiology following-correspondence reviewed
Monitor hemoglobin-6.8
Transfuse as needed
PPI
Heme test stools
Significant anxiety
Psychiatry evaluation pending
Ongoing smoking cessation counseling
Vaping cessation counseling ongoing
Daily EtOH use disorder
Follow MSAS-no signs of withdrawal yet
Alcohol withdrawal treatment protocol
DVT prophylaxis-mechanical
Nutrition post stone removal
Early mobilization/bedside range of motion
Outpatient pulmonary [id number]-[id number], low-dose lung cancer screening CT, ongoing smoking and vaping cessation counseling
Critical care statement: A total of 45 minutes of critical care time was provided for this patient today. This includes management of unstable vital signs, evaluation of the patient at bedside, reviewing the patient's pertinent medical records
including radiographs, pressor management, sepsis management, microbiology, laboratory evaluations, and discussion with primary team, consultants, pharmacy, nutrition, physical therapy, case management, charge nurse, critical care nursing, and
respiratory therapy.
Diagnostic data:
Chest x-ray 01/15/2018-emphysema, no acute chest pathology
Chest x-ray 06/04/2018-rib x-rays as well, lungs compatible with underlying emphysema, no focal airspace disease, no displaced left-sided rib fractures
Chest x-ray 10/30/2023-NAD
Blood culture 10/30/2023-positive Klebsiella pneumonia
Echocardiogram 10/27/2023-EF 45-50%, mild to moderate mitral regurgitation, PA systolic estimated 35-40
Subjective Dataa
Subjective Data
Date of Service:
Date of Service: November 01, 2023
Chief Complaint: Educational Technician Follow Up and Pulmonary Follow Up
Subjective:
Feels better, less abdominal pain, no complaints of shortness of breath, chest pain
Review of Systems
General: Other (Per HPI)
Objective Data
Data Reviewed
Vital Signs / I&O / Oxygen:
Vital Signs
Temp Pulse Resp BP Pulse Ox
101.3 F H 101 31 122/68 95
11/01/23 08:20 11/01/23 08:20 11/01/23 08:20 11/01/23 08:20 11/01/23 06:00
Intake and Output
10/31/23 11/01/23 11/02/23
06:59 06:59 06:59
Intake Total 2835.8 / 3063.6 5521.3 / 5521.3 0 / 0
Output Total 450 / 450 1850 / 1850
Balance 2385.8 / 2613.6 3671.3 / 3671.3 0 / 0
SaO2 95
Nasal Cannula flow liters per 4
minute
Physical Exam
General: Respiratory Distress (n) and Comfortable
HEENT: Normocephalic, Anicteric and Moist Mucous Membranes
Cardiovascular: Regular Rhythm
Respiratory: Crackles (n), Rhonchi (n), Non-Labored Respirations, Accessory Resp Muscle Use (n) and Stridor (n)
GI: Soft, Non Distended and Tender (Epigastric-no rebound or guarding)
Neurology: Awake, Alert and No Motor Deficits
Skin: Warm, Good Color, Cyanosis (n), Jaundice (n) and Rash (n)
Labs/Micro/Reports
Lab Data
11/01/23 05:24
11/01/23 05:24
Laboratory Results
10/31/23 10/31/23 10/31/23
08:21 15:17 21:53
APTT 61.0 H 87.0 H 87.8 H
11/01/23
05:24
APTT 75.0 H
Microbiology
10/30/23 19:39 Blood/Venous Blood Culture - Preliminary
Klebsiella pneumoniae
10/30/23 19:39 Blood/Venous Gram Stain - Final
10/31/23 03:35 Urine Urine Culture - Preliminary
Gram negative bacilli
10/31/23 02:56 Blood/Venous Blood Culture - Preliminary
Positive culture in progress
10/31/23 02:56 Blood/Venous Gram Stain - Preliminary
10/31/23 12:12 Blood/Venous Blood Parasites Smear - Final
10/30/23 21:57 Nasal Swab Influenza Types A & B (FELIPE) - Final
Negative for Influenza A & B, NAAT
Negative results must be combined with clinical observations
and patient history.
Nucleic Acid Amplification test (NAAT)performed on the
[employer] platform.
--- NOTE | 2023-11-01 09:09 | W.PN.ID1 ---
Date of Service
Date of Service: November 01, 2023
Today's Communication
await urology input
continue cefepime - deescalate as able
Assessment / Plan
Klebsiella bacteremia - possible source
Leukocytosis - markedly improved, reactive
Shock - resolved
Long QTc
Anxiety
- blood cultures x3, first set with klebsiella with probable urinary source
- urine culture 100K GNR also
- CT scan with obstructive stone - await urology input; has responded to current coverage well and transaminitis is minimal, my concern for acalculous cholecystitis is low
- will be interested in the results of eventual [facility]
- continue cefepime - deescalate as able when sensitivities back
- follow clinically
Chief Complaint
-: Fever and Bacteremia
Subjective / Review of Systems
febrile overnight
pressors weaned off
wbc now 17
hgb declined to 6.8
plt 296
L shift improving
cr stable at 1.1
K low today
tropes continue downtrending
lfts further improved
CT a/p: Obstructive uropathy secondary to an 8 mm calculus at the left ureteropelvic junction causing moderate left hydronephrosis. Gallbladder wall thickening, but no appreciable cholelithiasis by CT
still with some epigastric pain 'I feel a lot better'
Vital Signs / Physical Exam
Vital Signs
Vital Signs
Temp Pulse Resp BP Pulse Ox
101.3 F H 101 31 122/68 95
11/01/23 08:20 11/01/23 08:20 11/01/23 08:20 11/01/23 08:20 11/01/23 06:00
Physical Exam
Constitutional: No Acute Distress
Cardiovascular: Regular Rate and S1/S2; Negative Murmur or Rub
Pulmonary: Clear and Symmetric; Negative Wheezes or Rales
Gastrointestinal: Soft, Tender (mild epigstric), Non Distended and Normal Bowel Sounds
Skin: Warm and Dry; Negative Rash or Jaundice
Neurological: Awake
Objective Data
Lab Data
Lab Results
11/01/23 05:24
11/01/23 05:24
PT 19.7 Sec (11.4-14.6) H 10/31/23 02:56
PT Cancelled 10/31/23 02:56
INR 1.65 10/31/23 02:56
INR Cancelled 10/31/23 02:56
APTT 75.0 Sec (23.4-35.0) H 11/01/23 05:24
Estimated Creat Clear 61 ml/min 11/01/23 05:24
Lactic Acid Cancelled 10/30/23 23:30
Total Bilirubin 1.1 mg/dl (0.2-1.3) 11/01/23 05:24
GGT 82 U/L (12-43) H 10/31/23 02:56
AST 46 U/L (14-36) H 11/01/23 05:24
ALT 43 U/L (0-35) H 11/01/23 05:24
Alkaline Phosphatase 127 U/L (38-126) H 11/01/23 05:24
Most recent labs reviewed.
Micro Results:
10/30/23 19:39 Blood Culture - Preliminary
Blood/Venous Klebsiella pneumoniae
Gram Stain - Final
10/31/23 03:35 Urine Culture - Preliminary
Urine Gram negative bacilli
10/31/23 02:56 Blood Culture - Preliminary
Blood/Venous Positive culture in progress
Gram Stain - Preliminary
10/31/23 12:12 Blood Parasites Smear - Final
Blood/Venous
10/30/23 21:57 Influenza Types A & B (FELIPE) - Final
Nasal Swab Negative for Influenza A & B, NAAT
Negative results must be combined with clinical observations
and patient history.
Nucleic Acid Amplification test (NAAT)performed on the
[employer] platform.
Care Review
Plan reviewed with: Nurse (lithotripsy)
--- NOTE | 2023-11-01 09:46 | CONS.URO ---
Consultation
-
Date/Time Consultation Requested: 11/01/23 0850
Date/Time Consultation Performed: 11/01/23 0930
Requesting Provider: Yonas
Performing Provider: Merlene
Reason for Consultation: urosepsis, bacteremia, obstructing left UPJ stone
Medical History
History of Present Illness
57F presented to ED w/ fatigue x11-12 days - 'not felling well for about 2 weeks.'
+Nausea, anorexia, diarrhea.
Taken to [facility] ~1 week ago after syncopal episode - noted to have hypokalemia, received K and left AMA.
Intermittent fevers w/ Tmax 100.7 at home.
10/29: BCx => Klebsiella
10/30: UCx + BCx => prelim positive (GNR)
Noted to have anemia (currently receiving pRBC transfusion), elevated troponin (eventual cardiac cath per Cardiology), and hypotension requiring vasopressors (weaned this AM).
Currently on IV Cefepime per ID.
CT scan completed on 10/31/23 demonstrated obstructive uropathy secondary to 8 mm proximal left ureteral stone.
Urology consulted this AM @845 11/01/23.
Past Medical History
Past Medical History: HTN
Past Surgical History: , Orthopedic (multiple right knee surgeries) and Other (lumbar laminectomy w/ fusion)
Social History
Tobacco: Former Smoker (quite age 50)
Alcohol: Daily (3 oz vodka nightly)
Drug: None
Living: With Family
Family History
Family History: CAD
Allergies/Home Medications
Allergies
Allergy/AdvReac Type Severity Reaction Status Date / Time
morphine Allergy Intermediate Unknown Verified 10/30/23 17:59
codeine [Codeine] Allergy Hives Verified 10/30/23 17:59
erythromycin base Allergy Unknown Verified 10/30/23 17:59
Penicillins Allergy Hives Verified 10/30/23 17:59
Home Medications
�Medication �Instructions �Recorded �Confirmed �Type
acetaminophen 325 mg tablet 650 mg PO Q3HPRN PRN mild 10/30/23 10/30/23 History
pain/fever
potassium 99 mg tablet 99 mg PO DAILY Supplement 10/30/23 10/30/23 History
Physical Exam
Vital Signs
Vital Signs
Temp Pulse Resp BP Pulse Ox
100.3 F 104 19 103/60 87
11/01/23 09:39 11/01/23 09:39 11/01/23 09:39 11/01/23 09:39 11/01/23 09:38
Lab / Testing Results
Laboratory Results
11/01/23 05:24
11/01/23 05:24
Physical Exam
General: No Apparent Distress and Comfortable
HEENT: Normocephalic and Anicteric
Respiratory: Non Labored Respirations
Cardiac: S1/S2
Breast: Deferred by me
GI: Soft, Non Tender and Non Distended
Rectal: Deferred by Provider
Musculoskeletal: No Edema
Skin: Warm and Dry
Neuro: AO x 3, No Motor Deficits and Nonfocal/Grossly Intact
Psych: Calm and Intact Judgement
Assessment / Plan
-
Urosepsis
Klebsiella bacteremia
Obstructing uropathy secondary to 8 mm proximal left ureteral stone
ROSA
Leukocytosis
WBC >17
Cr 1.1 (1.5 on admission)
UA grossly positive for UTI
UCx => prelim GNR
BCx 10/30 => Klebsiella
- Maintain NPO status (pt had few bites early this AM per Hospitalist)
- Continue IV Cefepime per ID
- To OR urgently today for cysto + LEFT stent placement
- Surgical consent signed on chart
- pRBC transfusion per Hospitalist
- Patient high risk for surgical intervention per Cardiology - but will require decompression of obstructive uropathy for treatment of urosepsis/bacteremia
Detailed discussion including SDM had w/ patient regarding risks, benefits, alternatives, and potential complications of cystoscopy/stent placement including but not limited to infection, bleeding, ureteral/bladder injury, risk of ureteral stricture
formation, need for additional procedures.
Discussed w/ patient - greatly appreciative of care.
Data Reviewed
-
Total Time Spent with Patient (in minutes): 70
CT Scan: Image personally visualized and interpreted, Report Reviewed by Me, Discussed with Physician, Discussed with Nurse and Discussed with Patient
Lab Data: Labs Reviewed, Discussed with Physician, Discussed with Nurse and Discussed with Patient
Old Records: Reviewed
--- NOTE | 2023-11-01 09:59 | W.SUR.PREOP ---
Pre-Operative Surgical Note
-
I have examined this patient prior to the performance of the scheduled procedure.
The patient's condition is unchanged from the time of the current History and
Physical and the patient is able to undergo the scheduled procedure.
Detailed discussion including SDM had with patient regarding risks, benefits, alternatives, and potential complications of cystoscopy/stent placement including but not limited to infection, bleeding, ureteral/bladder injury, risk of ureteral
stricture formation, need for additional procedures.
To OR for cysto + LEFT stent placement today.
D/w [facility] Medicine, Cardiology, RN.
--- NOTE | 2023-11-01 10:28 | PTCARENOTE ---
Forty minutes after blood started, fever noted 101.3. Tylenol given and Dr. Branham notifed. Transfusion continues, fever assumed to be related to ongoing infection. Fever resolved and no other change in VS noted. Pt made NPO for pending urology
procedure, consent signed.
--- NOTE | 2023-11-01 11:10 | CON.MD ---
Addendum entered and electronically signed by Herman Sales MD 11/01/23 11:47:
would check b12 folate vit d. attend to thyroid results as per hospitalist.
Original Note:
Consultation - Medical
-
patient seen chart reviewed discussed w nursing the patient comes to with chills, fatigue, nausea , dry heaves. she has hx in recent past of syncope and epistaxis. she has been feeling weak and very tired in the past few weeks. she was found
to have a number of underlying medial issues including but not limited to sepsis (possible urinary source hx ureteral stenosis), elevated troponin/nstemi, keith, hypokalemia, hypomagnesemia, severe anemia, transaminitis, arrhythmia, htn, prolonged
qtc, hyponatremia. she denies any hx of depression but does admit to anxiety. she feels the primary source of her stress has been her debilitated medical condition but also family discord. she resides w and son who are very loud...they
argue and discuss very animatedly and it stresses her. she has discussed this w them and they are she says trying to change. to cope she uses medical mj as well as three oz vodka at night. this is also her designated sleep aid. she struggles to
fall and stay asleep. she has been trying to lose weight....over the past year she has been eating healthily and walking and lost 44 lbs. she can enjoy herself. energy level was not great in past several months which she attributes to medical
issues. patient currently takes no psych medications she was places on [employer] but has not required prn ativan anad vital signs are okay.
past psych hx patient has never sought rx for any psych issues
substance abuse three oz vodka daily medical marijuana
fh sister w etoh drug issues but recovering. denies other fh of psych
medical see above patient has received transfusion as hgb dipped to 6.8 she reports she already feels energy returning. notable massive wbc at one point 47K now coming down. she tells me she will have repeat ureteral stenting she believes
she has hx renal calculi currently gm negative bacteremia noted tsh low and free t4 slightly high. transaminitis
social three kids one at home two grandchildren the light of her life. 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 has + friends adamantly denies hx sexual or physical abuse see above
mse alert ox3 cooperative pleasant speech and thought process nl affect ok mood neutral no si aver intelligence insight judgment okay
dx unspecified anxiety r/o etoh use disorder.
plan patient is not interested in psychiatric medication or individual therapy at this point. she is willing to consider therapy with her family if things do not improve. she denies that she is being abused in any way but the loudness of their
arguing is jarring to her. she does not perceive herself to be in any danger. we talked about her use of alcohol. explained to her the negatives re etoh physically psychiatrically and the impact on sleep. if she is unable to maintain sobriety she
should consider attendance at aa or out patient therapy. also suggested she look into cognitive behavioral strategies for better sleep and explained some concepts of good sleep hygiene. will order melatonin while here 5 mg. psych will sign off.
patient does not feel she needs further psych services.
[2023-11-01] MEDS: MAXIPIME 1000 MG IV ×2 (11:17→17:14)
--- NOTE | 2023-11-01 11:52 | PTCARENOTE ---
Assessment unchanged. SpO2 to 85-86% with sleep. 2L NC applied with SpO2 to 95%
--- NOTE | 2023-11-01 13:06 | CM ---
CM following re: discharge planning.
Reviewed pt's chart, met with pt and 2 daughters at bedside.
PT and OPT evaluations noted - SNF level of care recommended. both pt and her daughters are aware, expressed their agreement. A list of SNFs provided from Medicare.gov. per daughter, a list of SNFs will be reviewed with the rest of the family and
family will come with a decision of a preferred SNF.
Pt is upgraded from OBS to inpatient level of admission. IMM reviewed, placed on chart, pt has a copy.
D/C plan: preferred SNF. Pt has a list.
CM will follow to assist pt with discharge to a preferred SNF.
--- NOTE | 2023-11-01 13:18 | PTCARENOTE ---
Pt to OR for ureter stent.
--- NOTE | 2023-11-01 14:05 | W.IMMPOSTOP ---
Surgical Immed Post Op Note
-
Primary Surgeon:
caridad
Assisting Surgeon:
Pre-op Diagnosis:
UTI/sepsis/obstructing left upj stone
Post-op Diagnosis:
same
Procedure Performed:
cysto/left ureteral stent
Anesthesia Type:
gen
Specimen / Cultures:
none
Estimated Blood Loss:
1cc
Complications:
none
Operative Findings:
stent and badillo placed
to ICU in stable condition
--- NOTE | 2023-11-01 14:58 | PTCARENOTE ---
Received pt from OR s/p L ureter stent placement. Upon return, pt has 18f badillo cath draining clear yellow urine. Pt c/o urge to void, discussed irritation from procedure and badillo. VSS. No c/o N/V. 1 unit PRBC (2nd of shift) started as ordered.
--- NOTE | 2023-11-01 15:12 | W.PN.HOSP.TC ---
Today's Communication/Plan
-
Urology consult for cystoscopy and stent placement
Continue antibiotics
Transfused 2 units of blood and follow H&H closely
Heme test stools
Assessment / Plan
Assessment / Plan
57 year old female
#Septic shock: Suspected source. Patient has Klebsiella pneumoniae bacteremia. CT of the abdomen pelvis with p.o. contrast shows Obstructive uropathy secondary to an 8 mm calculus at the left ureteropelvic junction causing moderate left
hydronephrosis. hemodynamics have improved and off of pressors. Urgent consultation placed to urology who plans to take her to the OR this afternoon for stent placement. Continue with current antibiotics. Appreciate ID input.
#Abnormal troponins - suspected NSTEMI prior to admit - ECHO with WMA noted . Asymptomatic without CP. CW medical management. Cards following. Eventual ischemia eval.
# Epigastric pain and tenderness-patient was using excessive NSAIDs. Coming to the hospital. Suspect gastritis. Keep on PPI.
# GB wall thickening without cholelithiasis - no RUQ tenderness .
Nonspecific mildly enlarged periportal and retroperitoneal lymph nodes
Would need to follow once acute infectious issues are over.
#Anemia: Iron studies suggests Iron deficiency based on Severely low iron saturation. no obvious external bleeding. Check heme test stools. Transfuse 2 units of PRBC.
# Hypokalemia: replete
# Prolonged QT: Replete potassium and magnesium as needed--avoid medications that prolong QT.Improved.
#Anxiety: Patient is anxious and a bit tearful. Consider psych consult tomorrow.
Will keep in ICU post procedure .If remains HD stable can be tx to tele later this evening .
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
Total time spent on today's encounter was 52 minutes which included time spent in counseling the patient regarding diagnosis and treatment plan as listed above, goals of care, and symptom management. Case was discussed with nursing staff,
specialists, . All labs and imaging personally reviewed by me. Remainder the time spent in detailed review of previous records, lab data, imaging, and other medical provider documentation.
Anticipated Discharge: > 48 hours
Subjective/Interval History
-
Date of Service: November 01, 2023
patient with stable hemodynamics. Not required vasopressors last night. fever this morning. She still has some pain in the epigastric area. No nausea or vomiting.
Denies any flank pain or dysuria frequency of urine.
Objective Data
-
Labs:
Laboratory Results
11/01/23
05:24
WBC 17.7 H
Hgb 6.8 L*
Hct 18.8 L*
Plt Count 296
APTT 75.0 H
Sodium 134 L
Potassium 3.1 L
Chloride 110 H
Carbon Dioxide 20 L
BUN 16
Creatinine 1.1 H
Glucose 109 H
Calcium 7.6 L
Total Bilirubin 1.1
AST 46 H
ALT 43 H
Alkaline Phosphatase 127 H
Vital Signs:
Vital Signs
Temp Pulse Resp BP Pulse Ox
98.5 F 85 23 104/64 97
11/01/23 15:04 11/01/23 15:04 11/01/23 15:04 11/01/23 15:04 11/01/23 14:30
I&O
10/31/23 11/01/23 11/02/23
06:59 06:59 06:59
Intake Total 2835.8 / 3063.6 5521.3 / 5657.3 1082 / 1082
Output Total 450 / 450 1850 / 1850 1150 / 1150
Balance 2385.8 / 2613.6 3671.3 / 3807.3 - / -
Review of Systems
-
Respiratory: Denies Trouble Breathing
Cardiac: Denies Chest Pain
Neuro: Denies Dizzy
Physical Exam
-
General: No Apparent Distress
HEENT: Moist Mucous Membranes
Respiratory: Clear to Auscultation
Cardiac: Regular Rhythm and S1/S2
GI: Soft, Nondistended, Normal Bowel Sounds and Tender (in epigastric pain)
Genito-urinary: No Costovertebral Tender
Neuro: AO x 3
Psych: Calm; Negative Confused
Data Reviewed
-
CT Scan: Report Reviewed by me (CT A/P)
Labs: Labs Reviewed by me
--- NOTE | 2023-11-01 17:18 | W.PN.HOSP.TC ---
Today's Communication/Plan
-
Continue cefepime--transfer patient to the OR for stent and badillo placement--continue IV fluids--transfused 2 units of blood--hemestool studies sent
Assessment / Plan
Assessment / Plan
57 year old female
#Septic shock: Suspected source. Patient has Klebsiella pneumoniae bacteremia. CT of the abdomen pelvis with p.o. contrast shows Obstructive uropathy secondary to an 8 mm calculus at the left ureteropelvic junction causing moderate left
hydronephrosis. hemodynamics have improved and off of Levophed. Urgent consultation placed in a.m. to urology who plans to take her to the OR this afternoon for stent placement. Continue with current antibiotics. Appreciate ID input.
#Abnormal troponins - suspected NSTEMI prior to admit - ECHO with wall motion abnormality noted. Asymptomatic without CP. CW medical management. Cards following. Eventual ischemia eval.
# Epigastric pain and tenderness-patient was using excessive NSAIDs. Coming to the hospital. Suspect gastritis. Keep on PPI.
# GB wall thickening without cholelithiasis - no RUQ tenderness .
Nonspecific mildly enlarged periportal and retroperitoneal lymph nodes
Would need to follow once acute infectious issues are over.
#Anemia: Iron studies suggests Iron deficiency based on Severely low iron saturation. no obvious external bleeding. Check heme test stools. Transfuse 2 units of PRBC.
# Hypokalemia: Potassium was 3.1 this a.m. . Repleted
# Prolonged QT: Replete potassium and magnesium as needed--avoid medications that prolong QT. Improved.
#Anxiety: Patient is anxious and a bit tearful. psych consult today.
Will keep in ICU post procedure. If HD remains stable can be transferred to tele later this evening.
JOANNE [employer], Urology and director of plant operations.
Anticipated Discharge: 24 - 48 hours
Subjective/Interval History
-
Date of Service: November 01, 2023
Late note--visited patient in the morning
Patient is experiencing ongoing fevers and chills--does not mention any nausea, vomiting--has been able to pass gas but no bowel movements since admission--mentions shoulder pain and abdominal pain have improved.
Objective Data
-
Labs:
Laboratory Results
11/01/23
05:24
WBC 17.7 H
Hgb 6.8 L*
Hct 18.8 L*
Plt Count 296
APTT 75.0 H
Sodium 134 L
Potassium 3.1 L
Chloride 110 H
Carbon Dioxide 20 L
BUN 16
Creatinine 1.1 H
Glucose 109 H
Calcium 7.6 L
Total Bilirubin 1.1
AST 46 H
ALT 43 H
Alkaline Phosphatase 127 H
Vital Signs:
Vital Signs
Temp Pulse Resp BP Pulse Ox
98.3 F 90 20 113/67 91
11/01/23 17:14 11/01/23 17:14 11/01/23 17:14 11/01/23 17:14 11/01/23 17:00
I&O
10/31/23 11/01/23 11/02/23
06:59 06:59 06:59
Intake Total 2835.8 / 3063.6 5521.3 / 5657.3 1492 / 1492
Output Total 450 / 450 1850 / 1850 1500 / 1500
Balance 2385.8 / 2613.6 3671.3 / 3807.3 -8 / -8
Review of Systems
-
History Source: Patient
All other systems: Reviewed and negative
Constitutional: Reports Fever and Chills
Respiratory: Reports Trouble Breathing
Cardiac: Reports Palpitations
Psych: Reports Anxious
Physical Exam
-
General: Appears in Distress, Fever and Chills
HEENT: Normocephalic
Respiratory: Clear to Auscultation
Cardiac: Regular Rhythm, S1/S2 and Tachycardic
GI: Nondistended and Normal Bowel Sounds
Musculoskeletal: No Edema
Neuro: Awake, Alert, Oriented and AO x 3
Hematologic / Lymphatic: No Lymphadenopathy
Psych: Anxious
[2023-11-01] MEDS: COLACE PO (19:47)
[2023-11-01] MEDS: MELATONIN 5 MG PO (20:47)
[2023-11-02] VITALS (15 sets, daily range): BP systolic 113–138; BP diastolic 38–90; BMI 22.1
[2023-11-02] MEDS: MAXIPIME 1000 MG IV ×2 (00:42→06:14)
[2023-11-02] MEDS: LR 1000 IV (00:43)
[2023-11-02] MEDS: STERILE WATER FOR INJECTION 10 ML IV ×2 (00:43→06:14)
--- NOTE | 2023-11-02 01:10 | PTCARENOTE ---
Received pt at 19:00. Pt Ox3, pleasant. RA, with pulse ox mid 90s. 2L while asleep, desat to high 80s. Breath sounds diminished at the bases. SR, palpable pulses. +bowel sounds, no BM. Jerez in place, draining cloudy yellow urine. Safe environment
maintained, call reynoso within reach. Repositions self.
[2023-11-02 05:06] LABS: Hematocrit 23.5 % (37.0-47.0); Hemoglobin 8.7 g/dL (12.0-16.0); Mean Corpuscular Volume 86.4 fL (81.0-99.0); Mean Platelet Volume 10.9 fL (7.4-10.4); Platelet Count 290 10^3/uL (130-400); Red Blood Cell Count 2.72 10^6/uL (4.20-5.40); Red Cell Dist. Width 13.9 % (11.5-14.5); White Blood Cell Count 11.9 10^3/uL (4.8-10.8)
[2023-11-02 05:15] LABS: ALT (SGPT) 50 U/L (0-35); AST (SGOT) 44 U/L (14-36); Albumin 2.8 g/dl (3.5-5.0); Alkaline Phosphatase 174 U/L (38-126); Blood Urea Nitrogen 14 mg/dl (7-17); Calcium 8.3 mg/dl (8.4-10.2); Carbon Dioxide 16 mmol/L (22-30); Chloride 111 mmol/L (98-107); Direct Bilirubin 0.3 mg/dl (0.0-0.4); Estimated Creatinine Clearance 75 ml/min; Glucose 162 mg/dl (70-99); Magnesium 1.9 mg/dl (1.6-2.3); Potassium 4.3 mmol/L (3.5-5.1); Sodium 135 mmol/L (135-145); Total Bilirubin 1.1 mg/dl (0.2-1.3); Total Protein 5.6 g/dl (6.3-8.2); eGFR > 60.00
[2023-11-02 05:31] LABS: Vitamin D, 25-OH*** 37.1 ng/mL (30-80)
[2023-11-02 06:04] LABS: Vitamin B12 > 1000 pg/ml (239-931)
--- NOTE | 2023-11-02 07:24 | W.PN.INTV ---
Today's Communication / Plan
Recommendations
Decrease IV fluids
Wean oxygen
Increase activity
Antibiotics
Jerez catheter per urology
Transfer out of ICU-call pulmonary if respiratory issues arise
Assessment
-
57-year-old female with history of anxiety, former smoker, hypertension and alcohol drinker who has not drank in at least 1 week presents with nausea without vomiting, anorexia, diarrhea, hypotension, dehydration and sepsis-child health associate consulted for
sepsis/shock/critical care management 10/27/2023.
Sepsis with shock unresponsive to fluids requiring pressors
Urosepsis from left ureteral stone
Obstructive uropathy secondary to 8 mm proximal left ureteral stone
Status post left ureteral stent 11/01/2023
Recent syncope-evaluated at [facility] earlier this week
Abdominal/epigastric pain
Bacteremia-Klebsiella pneumoniae-10/30/2023
Elevated troponin-suspect non-STEMI
ROSA
Profound leukocytosis-WBC 47,000
Metabolic acidosis
Lactic acidosis
Mild hyperglycemia
Hypokalemia
Anemia-iron deficiency
Elevated LFTs
Elevated acetaminophen level-36
Prolonged QT
Alcohol use disorder
Markedly elevated procalcitonin-greater than 200-in the setting of ROSA
TSH low-0.12 with elevated free T4-rule out hyperthyroid
EF reduced 45-50%
Moderate mitral regurgitation
Conditions present prior to admission:
Hypertension.
Anxiety.
Pneumothorax right side 23 years ago-iatrogenic during 'nerve block'
Former [id number]-zyjo-year quit 50 years old
. Multiple right knee surgeries. Lumbar laminectomy with fusion.
Plan
Hemodynamics improved and not requiring pressors
Supplement oxygen as needed-wean to room air
Assess discharge supplemental oxygen needs
Aspiration precautions
Nebulizers if needed-currently not bronchospastic
Cultures reviewed
Urine culture 10/31/2023-Klebsiella
Blood culture 10/30/2023-Klebsiella
Blood culture 10/31/2023-Klebsiella
Blood culture 10/31/2023-no blood parasites
Blood cultures with Klebsiella
Empiric antibiotics continue per infectious disease
Infectious disease following-correspondence reviewed-continue cefepime-will renally adjust
Monitor leukocytosis-WBCs decreased from 47,000-now 11,900
Check C. kkxrahcpz-[id number]-tzs producing stool
Decrease IV fluids
Lactate trended
Norepinephrine currently off
CT abdomen 10/31/2023-trace bilateral pleural effusions right greater than left, obstructive uropathy secondary to 8 mm calculus left ureteropelvic junction causing moderate left hydronephrosis, left lower pole nephrolith, gallbladder wall thickening
but no appreciable cholelithiasis, diverticulosis, mild pelvic ascites, trace bilateral pleural effusions, nonspecific mildly enlarged periportal and retroperitoneal lymph nodes
With significant epigastric pain and gram-negative bacteremia obtain CT abdomen
PPI
Trend LFTs-coming down
Elevated acetaminophen level noted-no intentional overdose by history, was taking Tylenol for pain
Urology following-correspondence reviewed
Cystoscopy and left ureteral stent placement 11/01/2023
Jerez catheter per urology
Trended troponin-peak 6.9-now
Echocardiogram noted-possible AL preadmission
Probable cardiac catheterization this admission after sepsis controlled
Cardiology following-correspondence reviewed
Monitor hemoglobin-6.8-now 8.7 after transfusion
Transfuse as needed
PPI
Heme test stools
Significant anxiety
Psychiatry evaluation 10/31/2025-not interested in psychiatric medications, willing to consider therapy with her family
Ongoing smoking cessation counseling
Vaping cessation counseling ongoing
Daily EtOH use disorder
Follow MSAS-no signs of withdrawal yet
Alcohol withdrawal treatment protocol
Alcohol cessation counseling was provided
DVT prophylaxis-mechanical
Nutrition post stone removal
Early mobilization/bedside range of motion
Patient stable hemodynamically not on pressors and could be transferred out of ICU-call pulmonary if respiratory issues arise
Outpatient pulmonary feeupw-[id number], low-dose lung cancer screening CT, ongoing smoking and vaping cessation counseling
Reviewed the patient's pertinent medical records including radiographs, pressor management, sepsis management, microbiology, laboratory evaluations, and discussion with primary team, consultants, pharmacy, nutrition, physical therapy, case
management, charge nurse, critical care nursing, and respiratory therapy.
Diagnostic data:
Chest x-ray 01/15/2018-emphysema, no acute chest pathology
Chest x-ray 06/04/2018-rib x-rays as well, lungs compatible with underlying emphysema, no focal airspace disease, no displaced left-sided rib fractures
Chest x-ray 10/30/2023-NAD
Blood culture 10/30/2023-positive Klebsiella pneumonia
Echocardiogram 10/27/2023-EF 45-50%, mild to moderate mitral regurgitation, PA systolic estimated 35-40
Subjective Dataa
Subjective Data
Date of Service:
Date of Service: November 02, 2023
Chief Complaint: Medical Sociologist Follow Up and Pulmonary Follow Up
Subjective:
Feels much improved, no complaints of shortness of breath, chest pain, productive cough, abdominal pain much improved
Review of Systems
General: Other (Per HPI)
Objective Data
Data Reviewed
Vital Signs / I&O / Oxygen:
Vital Signs
Temp Pulse Resp BP Pulse Ox
98.7 F 82 26 126/69 92
11/02/23 07:22 11/02/23 07:00 11/02/23 07:00 11/02/23 07:00 11/02/23 05:00
Intake and Output
11/01/23 11/02/23 11/03/23
06:59 06:59 06:59
Intake Total 5521.3 / 5657.3 2532 / 2532
Output Total 1850 / 1850 2325 / 2325
Balance 3671.3 / 3807.3 207 / 207
SaO2 92
Nasal Cannula flow liters per 2
minute
Physical Exam
General: Respiratory Distress (n) and Comfortable
HEENT: Normocephalic, Anicteric and Moist Mucous Membranes
Cardiovascular: Regular Rhythm
Respiratory: Crackles (n), Rhonchi (n), Non-Labored Respirations, Accessory Resp Muscle Use (n) and Stridor (n)
GI: Soft, Non Distended and Tender (Epigastric-no rebound or guarding)
Neurology: Awake, Alert and No Motor Deficits
Skin: Warm, Good Color, Cyanosis (n), Jaundice (n) and Rash (n)
Labs/Micro/Reports
Lab Data
11/02/23 04:25
11/02/23 04:25
Microbiology
10/30/23 19:39 Blood/Venous Blood Culture - Preliminary
Klebsiella pneumoniae
10/30/23 19:39 Blood/Venous Gram Stain - Final
10/31/23 03:35 Urine Urine Culture - Preliminary
Gram negative bacilli
10/31/23 02:56 Blood/Venous Blood Culture - Preliminary
Klebsiella pneumoniae
10/31/23 02:56 Blood/Venous Gram Stain - Preliminary
10/31/23 12:12 Blood/Venous Blood Parasites Smear - Final
10/30/23 21:57 Nasal Swab Influenza Types A & B (FELIPE) - Final
Negative for Influenza A & B, NAAT
Negative results must be combined with clinical observations
and patient history.
Nucleic Acid Amplification test (NAAT)performed on the
[employer] platform.
[2023-11-02] MEDS: THIAMINE INJECTION 200 MG IV (08:08)
[2023-11-02] MEDS: COLACE PO ×2 (08:08→19:46)
[2023-11-02] MEDS: NSS (PRESERVATIVE FREE) 10 ML IV (08:08)
[2023-11-02] MEDS: FOLVITE 1 MG PO (08:08)
[2023-11-02] MEDS: LOW STRENGTH ASPIRIN 81 MG PO (08:08)
[2023-11-02] MEDS: PROTONIX IV 40 MG IV (08:09)
--- NOTE | 2023-11-02 08:27 | W.PN.CD ---
Today's Communication / Plan
-
-continue ASA
-start low dsoe metoprolol
-Patient received PRBC. Hb improved but still significantly anemia.
- consider IV iron
- additional tx of anemia per primary team
Impression / Plan
-
57-year-old woman with a history of hypertension whose had issues with nausea and vomiting and shaking chills and fatigue for about 12 days. Patient noted to have troponin of 6 which has been trending down since admission also noted to have
significant anemia with hemoglobin 8.3, white blood cell count 4.7 hypokalemia and creatinine 1.3.
Sepsis
- BC - Klebsiella 10/30/23
- obstructing ureter stone. S/P ureter stent 11/01/23
- abx per I
.
Abnormal troponin. Elevation of 6. NSTMI. Unclear Type I or Type II. May be type 2 secondary to sepsis. Echo with distal septal, distal anteroseptal, distal anterior and apical HK
-Presume SD prior to admit. Takosubo would be a possibility but echo not classic and this is dx of exclusion.
-Medical therapy limited by BP.
- stop Heparin stopped with progressive anemia
- tx anemia
- ASA
- BB start
- eventual assessement of CAD. probable cath this admit but will need to tx sepsis and anemia.
Anemia - severe. anemai on admit now Hb 6.8. Drop may be related to volume relacement
- transfused PRBC
- management by primary reena
- consider IV iron
Ureter stone. post ureter stetn 11/01/23. Tx per urology
.
Syncope. Occurred prior to evaluation at [facility] earlier this week. May have been related to hypotension and volume depletion in the setting of suspected infection, nausea and vomiting, diuretic and antihypertensive medication. Continue to
monitor blood [facility]a [facility]
.
Hypokalemia. Improved.
.
Prolonged QT. improved after K replacement.
.
Anxiety.
subjective
s/p ureter stent. No cp or sob or palp
Physical Exam
Vital Signs/Labs
Vital Signs
Temp Pulse Resp BP Pulse Ox
98.7 F 92 22 126/69 93
11/02/23 07:22 11/02/23 07:57 11/02/23 07:57 11/02/23 07:57 11/02/23 07:57
11/01/23 11/02/23 11/03/23
06:59 06:59 06:59
Actual Weight 69 kg 72 kg
11/02/23 04:25
11/02/23 04:25
PT 19.7 Sec (11.4-14.6) H 10/31/23 02:56
PT Cancelled 10/31/23 02:56
INR 1.65 10/31/23 02:56
INR Cancelled 10/31/23 02:56
APTT 75.0 Sec (23.4-35.0) H 11/01/23 05:24
Magnesium 1.9 mg/dl (1.6-2.3) 11/02/23 04:25
Free T4 2.52 ng/dl (0.78-2.19) H 10/31/23 02:56
LAB Results
10/30/23 10/30/23 10/31/23
18:11 21:52 02:57
Troponin I 6.960 H* 5.360 H* 4.750 H*
11/01/23
05:24
Troponin I 1.510 H*
Physical Exam
Constitutional: No acute distress
Cardiovascular: Rhythm & rate is regular
Respiratory: Respiratory effort normal
GI: Soft, Distention absent, Normal bowel sounds and Other (mild RCM and rlight lowe rib discomfort with palp)
Neuro/Psych: Alert
Other: Other
Data Reviewed
-
Date of Service: November 02, 2023
Medical Decision Making: Reviewed Test Results
X-Ray/CT/US/MRI/NUC/PET: Report Reviewed by me
Medical Tests (PFT, Pathology etc): Report Reviewed by me
Labs: Labs Ordered by me
Critical Care Time (in minutes): 35
--- NOTE | 2023-11-02 08:45 | W.PN.HOSP.TC ---
Today's Communication/Plan
-
Transfer to telemetry--continue cefepime--start metoprolol--continue to monitor vital signs and CBC
Assessment / Plan
Assessment / Plan
57 year old female
#Septic shock: Suspected source. Patient has Klebsiella pneumoniae bacteremia. CT of the abdomen pelvis with p.o. contrast shows Obstructive uropathy secondary to an 8 mm calculus at the left ureteropelvic junction causing moderate left
hydronephrosis. S/P ureter stent 11/01/23. Continue with current antibiotics. Appreciate cards input--hemodynamics have improved and off of Levophed. Started metoprolol today.
#Abnormal troponins - suspected NSTEMI prior to admit - ECHO with wall motion abnormality noted. Asymptomatic without CP. CW medical management. Cards following. May consider Cath after patient is stable.
# Epigastric pain and tenderness-patient was using excessive NSAIDs. Coming to the hospital. Suspect gastritis. Keep on PPI.
# GB wall thickening without cholelithiasis - no RUQ tenderness at this time.
Nonspecific mildly enlarged periportal and retroperitoneal lymph nodes --Would need to follow once acute infectious issues are over.
#Anemia: Iron studies suggests Iron deficiency based on Severely low iron saturation. no obvious external bleeding. heme test stools sent. Received 2 units of PRBC. May consider iron transfusion
# Hypokalemia: Potassium is 4.3 this a.m. . Replete as needed.
# Prolonged QT: Improved--Replete potassium and magnesium as needed--avoid medications that prolong QT.
#Anxiety: Patient is is not anxious at this time and is calm. Continue meds as prior to admission
can be transferred to tele today.
Anticipated Discharge: 24 - 48 hours
Subjective/Interval History
-
Date of Service: November 02, 2023
Patient is in much better clinical condition this morning. She did not have any fevers, chills overnight. Does not feel nauseous anymore. Able to pass gas but no bowel movements.
Objective Data
-
Labs:
Laboratory Results
07/26/24
04:25
WBC 11.9 H
Hgb 8.7 L D
Hct 23.5 L
Plt Count 290
Sodium 135
Potassium 4.3 D
Chloride 111 H
Carbon Dioxide 16 L
BUN 14
Creatinine 0.9
Glucose 162 H
Calcium 8.3 L
Total Bilirubin 1.1
AST 44 H
ALT 50 H
Alkaline Phosphatase 174 H
Vital Signs:
Vital Signs
Temp Pulse Resp BP Pulse Ox
98.7 F 92 22 126/69 93
11/02/23 07:22 11/02/23 07:57 11/02/23 07:57 11/02/23 07:57 11/02/23 07:57
I&O
11/01/23 11/02/23 11/03/23
06:59 06:59 06:59
Intake Total 5521.3 / 5657.3 2532 / 2532
Output Total 1850 / 1850 2325 / 2325
Balance 3671.3 / 3807.3 207 / 207
Review of Systems
-
History Source: Patient
All other systems: Reviewed and negative
Physical Exam
-
General: No Apparent Distress
HEENT: Normocephalic and Atraumatic
Respiratory: Clear to Auscultation
Cardiac: Regular Rhythm and S1/S2
GI: Nontender, Nondistended and Normal Bowel Sounds
Musculoskeletal: No Edema
Skin: Warm
Neuro: Awake, Alert, Oriented and AO x 3
Psych: Calm
Data Reviewed
-
Total Time Spent with Patient (in minutes): 15
--- NOTE | 2023-11-02 09:12 | W.PN.ID1 ---
Date of Service
Date of Service: November 02, 2023
Today's Communication
- start cefazolin for next 24 hours, tomorrow will deescalate to keflex to complete two week course
- follow clinically
Assessment / Plan
Klebsiella bacteremia - possible source
Leukocytosis - markedly improved, reactive
Shock - resolved
Long QTc
Anxiety
- blood cultures and urine culture with K pneumoniae
- no need to repeat blood cultures as source now controlled, isolate GNR
- babesia smear is negative
- CT scan with obstructive stone - appreciate urology input and stenting
- will be interested in the results of eventual LHC
- start cefazolin for next 24 hours, tomorrow will deescalate to keflex to complete two week course
- follow clinically
Chief Complaint
-: Fever and Bacteremia
Subjective / Review of Systems
afebrile
bp stable
further improved wbc count
hgb back to 8.7
plt 290
cr 0.9
k now 4.3
transaminitis improving
sensi back on the k pneumo
stent placed beyond the stone, badillo inserted perioperative and has been removed today
Vital Signs / Physical Exam
Vital Signs
Vital Signs
Temp Pulse Resp BP Pulse Ox
98.7 F 92 22 126/69 93
11/02/23 07:22 11/02/23 07:57 11/02/23 07:57 11/02/23 07:57 11/02/23 07:57
Physical Exam
Constitutional: No Acute Distress
Cardiovascular: Regular Rate and S1/S2; Negative Murmur or Rub
Pulmonary: Clear and Symmetric; Negative Wheezes or Rales
Gastrointestinal: Soft, Non Tender, Non Distended and Normal Bowel Sounds
Skin: Warm and Dry; Negative Rash or Jaundice
Objective Data
Lab Data
Lab Results
11/02/23 04:25
11/02/23 04:25
PT 19.7 Sec (11.4-14.6) H 10/31/23 02:56
PT Cancelled 10/31/23 02:56
INR 1.65 10/31/23 02:56
INR Cancelled 10/31/23 02:56
APTT 75.0 Sec (23.4-35.0) H 11/01/23 05:24
Estimated Creat Clear 75 ml/min 11/02/23 04:25
Lactic Acid Cancelled 10/30/23 23:30
Total Bilirubin 1.1 mg/dl (0.2-1.3) 11/02/23 04:25
GGT 82 U/L (12-43) H 10/31/23 02:56
AST 44 U/L (14-36) H 11/02/23 04:25
ALT 50 U/L (0-35) H 11/02/23 04:25
Alkaline Phosphatase 174 U/L (38-126) H 11/02/23 04:25
Most recent labs reviewed.
Micro Results:
10/31/23 02:56 Blood Culture - Final
Blood/Venous Klebsiella pneumoniae
Gram Stain - Final
10/30/23 19:39 Blood Culture - Final
Blood/Venous Klebsiella pneumoniae
Gram Stain - Final
10/31/23 03:35 Urine Culture - Final
Urine Klebsiella pneumoniae
10/31/23 12:12 Blood Parasites Smear - Final
Blood/Venous
10/30/23 21:57 Influenza Types A & B (FELIPE) - Final
Nasal Swab Negative for Influenza A & B, NAAT
Negative results must be combined with clinical observations
and patient history.
Nucleic Acid Amplification test (NAAT)performed on the
[employer] platform.
[2023-11-02] MEDS: LOPRESSOR 12.5 MG PO ×2 (10:03→19:45)
--- NOTE | 2023-11-02 10:18 | CM ---
CM following re: discharge planning.
Reviewed pt's chart, met with pt.
Pt is much calmer regarding her relationship with and a son. Per MD, clinically pt has been improved, Cardiology following.
D/C plan: home with anticipated no needs. Family to transport at discharge.
CM will follow with discharge plan updates as hospitalization progresses
--- NOTE | 2023-11-02 10:53 | PTCARENOTE ---
badillo removed as per urology, due to void 5PM. transfer orders noted. resting comfortably in bed, cont to monitor
--- NOTE | 2023-11-02 10:59 | W.PN.URO.CBU ---
Today's Communication / Plan
-
remove badillo
outpt f/u after medical stabilization to discuss stone procedure in consult with cardiology
Assessment / Plan
-
bacteremia- gu source- klebsiella
stone- s/p stent
pt improving
badillo out
discharge when medically stable to f/u with dr mclean
Diagnosis
-
Date of Service: November 02, 2023
-
Patient Diagnosis:
stone
sepsis
Post Op Day:
left ureteral stent 10/31
Subjective
-
pt feels better
all parameters improved
urine clear
Objective
-
Vital Signs
Temp Pulse Resp BP Pulse Ox
98.7 F 87 29 132/85 92
11/02/23 07:22 11/02/23 10:03 11/02/23 10:00 11/02/23 10:00 11/02/23 09:00
Intake and Output
11/01/23 11/02/23 11/03/23
06:59 06:59 06:59
Intake Total 5521.3 / 5657.3 2532 / 2532 520 / 520
Output Total 1850 / 1850 2325 / 2325 150 / 150
Balance 3671.3 / 3807.3 207 / 207 370 / 370
Intake:
Oral fluids 2039 200 / 200
IV fluids (Total) 3481.3 / 3617.3 2031 320 / 320
KCL 135.0 / 135.0
Lr 1,000 ml @ 80 mls/hr IV . 3000 / 3125 2009 320 / 320
[id number] CRISTOBAL Rx#:[id number]
heparin 260 / 271 22 / 22
levophed 86.3 / 86.3
Blood Product Amount Infused ( 500 / 500
mL)
Packed Rbc Leukoreduced Unit 250 / 250
[id number]
Packed Rbc Leukoreduced Unit 250 / 250
[id number]
Output:
Urine, Badillo 1175 / 1175 150 / 150
Urine, Voided 1850 / 1850 1150 / 1150
Laboratory Results
11/02/23 04:25
11/02/23 04:25
Review of Systems
-
Constitutional: Fatigue
Respiratory: No Symptoms
Cardiac: No Symptoms
Abdomen/GI: No Symptoms
Physical Exam
-
General - no acute distress
Abdomen - soft, non-tender
Genitalia - normal- badillo in place
[2023-11-02] MEDS: ANCEF 10 IV ×2 (14:18→19:45)
--- NOTE | 2023-11-02 16:46 | W.PN.UPDATE ---
Update Note
Progress Note Update
I saw and evaluated the patient. I reviewed the resident�s note and agree with findings and plan as documented in the resident�s note.
Remains with stable hemodynamics. Afebrile. Improving white count. Continue antibiotics per ID. Transfer to telemetry. Jerez out today per urology.
Remains without chest pain. No clinical signs of heart failure. Continue to follow hemoglobin. Heme test stools again. Hemoglobin is stable s/p transfusion. Hold on IV Iron while bacteremic.
[2023-11-02] MEDS: PROTONIX 40 MG PO (19:46)
[2023-11-02] MEDS: MELATONIN PO (22:46)
[2023-11-03 03:08] VITALS: BP 142/89
[2023-11-03] MEDS: KEFLEX 500 MG PO ×4 (06:08→21:10)
[2023-11-03 07:00] VITALS: BP 120/98
--- NOTE | 2023-11-03 07:45 | PTCARENOTE ---
11/02- Patient is AAOX3 but agitated, anxious, tachypneic and states she wants to leave AMA. She states, 'this is not a good environment for me. I need sun, fresh air, the cool breeze on my neck. This environment is making my heart worse because I
lack basic relaxation necessities.' Using calm tone, active listening and validation, was able to calm patient; speak therapeutic conversation and educated her on consequences of leaving AMA. Advised she left AMA once before and came back within a
few days because the previous issue had not been resolved. She verbalized understanding. She was willing to take her AM medication and wait for Physician to come to discuss plan of care.
[2023-11-03] MEDS: VITAMIN B1 100 MG PO ×2 (08:50→21:10)
[2023-11-03] MEDS: PROTONIX 40 MG PO ×2 (08:50→21:10)
[2023-11-03] MEDS: LOPRESSOR 12.5 MG PO ×2 (08:50→21:11)
[2023-11-03] MEDS: FOLVITE 1 MG PO (08:50)
[2023-11-03] MEDS: LOW STRENGTH ASPIRIN 81 MG PO (08:50)
[2023-11-03] MEDS: COLACE PO ×2 (08:50→21:10)
[2023-11-03 09:11] LABS: % Basophils 0.4 % (0-2); % Immature Granulocytes 4.9 % (0-0.5); % Lymphocytes 8.6 % (20.5-51.1); % Monocytes 5.6 % (1.7-9.3); % Neutrophils 80.5 % (42.2-75.2); Absolute Basophils 0.1 10^3/uL (0-0.2); Absolute Immature Granulocytes 1.1 10^3/uL (0-0.05); Absolute Lymphocytes 1.9 10^3/uL (1.2-3.4); Absolute Monocytes 1.2 10^3/uL (0.1-0.6); Absolute Neutrophils 17.6 10^3/uL (1.4-6.5); Hematocrit 28.3 % (37.0-47.0); Hemoglobin 10.2 g/dL (12.0-16.0); Mean Corpuscular Hgb 32.3 pg (27.0-31.0); Mean Corpuscular Volume 89.6 fL (81.0-99.0); Mean Platelet Volume 11.1 fL (7.4-10.4); Nucleated Red Blood Cells % 0 %; Platelet Count 436 10^3/uL (130-400); Red Blood Cell Count 3.16 10^6/uL (4.20-5.40); Red Cell Dist. Width 14.2 % (11.5-14.5); White Blood Cell Count 21.8 10^3/uL (4.8-10.8)
--- NOTE | 2023-11-03 10:08 | W.PN.CD ---
Today's Communication / Plan
-
Patient more cooperative today
Continue aspirin.
Titrate beta-jese and lisinopril
Plan for cardiac catheterization tomorrow. Patient agreeable
n.p.o. after midnight
Impression / Plan
-
57-year-old woman with a history of hypertension whose had issues with nausea and vomiting and shaking chills and fatigue for about 12 days. Patient noted to have troponin of 6 which has been trending down since admission also noted to have
significant anemia with hemoglobin 8.3, white blood cell count 4.7 hypokalemia and creatinine 1.3.
Sepsis
- BC - Klebsiella 10/30/23
- obstructing ureter stone. S/P ureter stent 11/01/23
- abx per I
.
Abnormal troponin. Elevation of 6. NSTMI. Unclear Type I or Type II. May be type 2 secondary to sepsis. Echo with distal septal, distal anteroseptal, distal anterior and apical HK
-Presume AR prior to admit. Takosubo would be a possibility but echo not classic and this is dx of exclusion.
-Medical therapy limited by BP initially but now initiating medical therapy.
- tx anemia
- ASA
- BB
-Statin.
-Add lisinopril
- Assessment for CAD. Discussed issues with patient also reviewed upcoming procedures with urology. Plan for cardiac catheterization
Anemia - severe. anemia
- transfused PRBC this admit.
-Low iron
-Improving.
- management by primary team
Ureter stone. post ureter stent 11/01/23. Tx per urology. Will eventually need additional outpatient procedure.
.
Syncope. Occurred prior to evaluation at [facility] earlier this week. May have been related to hypotension and volume depletion in the setting of suspected infection, nausea and vomiting, diuretic and antihypertensive medication. Continue to
monitor blood pressures. Stable on telemetry
Hypokalemia. Improved.
.
Prolonged QT. improved after K replacement.
.
Anxiety.
subjective
s/p ureter stent. No cp or sob or palp
Physical Exam
Vital Signs/Labs
Vital Signs
Temp Pulse Resp BP Pulse Ox
98.0 F 105 18 120/98 97
11/03/23 07:00 11/03/23 08:50 11/03/23 07:00 11/03/23 07:00 11/03/23 07:00
11/02/23 11/03/23 11/04/23
06:59 06:59 06:59
Actual Weight 72 kg
11/03/23 08:13
11/02/23 04:25
PT 19.7 Sec (11.4-14.6) H 10/31/23 02:56
PT Cancelled 10/31/23 02:56
INR 1.65 10/31/23 02:56
INR Cancelled 10/31/23 02:56
APTT 75.0 Sec (23.4-35.0) H 11/01/23 05:24
Magnesium 1.9 mg/dl (1.6-2.3) 11/02/23 04:25
Free T4 2.52 ng/dl (0.78-2.19) H 10/31/23 02:56
LAB Results
11/01/23
05:24
Troponin I 1.510 H*
Physical Exam
Constitutional: No acute distress
Cardiovascular: Rhythm & rate is regular
Respiratory: Respiratory effort normal
GI: Soft
Neuro/Psych: Alert
Data Reviewed
-
Date of Service: November 03, 2023
Medical Decision Making: Reviewed Test Results
Echo: Report Reviewed by me
Medical Tests (PFT, Pathology etc): Report Reviewed by me
Labs: Labs Reviewed by me
--- NOTE | 2023-11-03 10:36 | W.PN.HOSP.TC ---
Today's Communication/Plan
-
Continue to monitor h/h and vital signs--continue with Keflex
Assessment / Plan
Assessment / Plan
57 year old female
#Septic shock: Suspected source. Patient has Klebsiella pneumoniae bacteremia. CT of the abdomen pelvis with p.o. contrast shows Obstructive uropathy secondary to an 8 mm calculus at the left ureteropelvic junction causing moderate left
hydronephrosis. hemodynamics have improved and off of Levophed. Status post stent and Jerez placement. White cell count slightly up trended-- appreciate ID input--Keflex started and to continue for 6 days
#Abnormal troponins - suspected NSTEMI prior to admit - ECHO with wall motion abnormality noted. Asymptomatic without CP. CW medical management. Cards following. Plan for eventual ischemia evaluation.
# Epigastric pain and tenderness-- Suspect gastritis. Keep on PPI.
# GB wall thickening without cholelithiasis - no RUQ tenderness at this time.
Nonspecific mildly enlarged periportal and retroperitoneal lymph nodes
Would need to follow once acute infectious issues are over.
#Anemia: Iron studies suggests Iron deficiency based on Severely low iron saturation. s/p 2 units of PRBC. Hemoglobin improved (10.2). no obvious external bleeding. hemestool ordered. Hold on iron treatment for now.
# Hypokalemia: POA--resolved-- replete if needed
# Prolonged QT: Improved. Replete potassium and magnesium if needed--avoid medications that prolong QT.
#Anxiety: Patient is anxious and overwhelmed. appr psych. Patient declined further psych consults.
Anticipated Discharge: Within 24 hours
Subjective/Interval History
-
Date of Service: November 03, 2023
Patient is feeling anxious and overwhelmed. States staying at the hospital makes her feel like she is dying. Mentions fresh air and sunshine can help with anxiety,is considering leaving the hospital AMA. Clinically, hemodynamics are stable and did
not have any more fevers/chills or nausea. She is not very cooperative and would like to be left alone.
Objective Data
-
Labs:
Laboratory Results
11/03/23
08:13
WBC 21.8 H
Hgb 10.2 L
Hct 28.3 L
Plt Count 436 H D
Vital Signs:
Vital Signs
Temp Pulse Resp BP Pulse Ox
98.0 F 105 18 120/98 97
11/03/23 07:00 11/03/23 08:50 11/03/23 07:00 11/03/23 07:00 11/03/23 07:00
I&O
11/02/23 11/03/23 11/04/23
06:59 06:59 06:59
Intake Total 2532 / 2532 1240 / 1240
Output Total 2325 / 2325 150 / 150
Balance 207 / 207 1090 / 1090
Review of Systems
-
History Source: Patient
Psych: Reports Anxious
Physical Exam
-
General: Well Developed and No Apparent Distress
Respiratory: Clear to Auscultation
Cardiac: Regular Rhythm and S1/S2
GI: Nontender, Nondistended and Normal Bowel Sounds
Musculoskeletal: No Edema
Neuro: Awake, Alert, Oriented and AO x 3
Psych: Anxious
Data Reviewed
-
Total Time Spent with Patient (in minutes): 15
[2023-11-03 10:55] LABS: HDL Cholesterol 12 mg/dl; LDL Cholesterol, Calculated 96 mg/dl; Total Cholesterol 162 mg/dl (50-199); Triglyceride 270 mg/dl (10-149); Very Low Density Lipoprotein 54 mg/dl (0-30)
--- NOTE | 2023-11-03 11:05 | W.PN.UPDATE ---
Update Note
Progress Note Update
I saw and evaluated the patient. I reviewed the resident�s note and agree with findings and plan as documented in the resident�s note.
Patient today very anxious to leave hospital. She states she needs a shower but she does not like to take a shower here. She is also feels like she needs sunshine and fresh air.
No fevers or chills. Tolerating diet. No urinary symptoms No dysuria. No shortness of breath or chest pain.
She is alert and oriented. Anxious looking. Hemodynamically stable. Chest clear. Abdomen benign.
Advised the best thing for her is to stay and complete ischemia eval. I ID has narrowed down antibiotics to oral formulation. She could go home from infectious standpoint. She saw cardiology before me who are recommending ischemia eval on Sunday.
As with her anxiety management offered psychiatry evaluation and anxiolytic meds.
She said she is going to think about it. She was to hold if she wants to leave that it will be AMA.
[2023-11-03] MEDS: ATIVAN 0.5 MG IV (11:38)
[2023-11-03] MEDS: NSS (PRESERVATIVE FREE) 0.25 ML IV (11:38)
--- NOTE | 2023-11-03 11:40 | PTCARENOTE ---
11/02- Therapeutic conversation with patient who is having intermittent panic episodes where HR will be Sinus Tachycardic in 130s-140s, and she'll be tachypneic with RR between 22-26. Discussed Mindfulness for Stress Reduction; Positive coping; how
to channel Rheuminating Thoughts. Patient verbalized understanding. She states she tries to practice Mindfulness but cannot in this hospital atmosphere. Discussed ways to improve her environment while here, including closing the curtain, opening
the blinds to get some sunlight, taking a shower which she is cleared to do, etc. She verbalized understanding. Administered IV Ativan as ordered as well.
--- NOTE | 2023-11-03 14:48 | W.PN.ID1 ---
Date of Service
Date of Service: November 03, 2023
Today's Communication
- note increasing leukocytosis post antibiotic switch however patient otherwise with markedly improved symptoms, would observe, suspect it will begin resolving again as levels saturate
- blood cultures and urine culture with K pneumoniae
- CT scan with obstructive stone s/p stenting 48 hours ago
- will be interested in the results of eventual LHC
- continue keflex to complete two week course
- follow clinically, agree with completing revascularization workup prior to dc
Assessment / Plan
Klebsiella bacteremia - possible source
Leukocytosis - markedly improved, reactive
Shock - resolved
Long QTc
Anxiety
- note increasing leukocytosis post antibiotic switch however patient otherwise with markedly improved symptoms, would observe, suspect it will begin resolving again as levels saturate
- blood cultures and urine culture with K pneumoniae
- CT scan with obstructive stone s/p stenting 48 hours ago
- will be interested in the results of eventual LHC
- continue keflex to complete two week course
- follow clinically, agree with completing revascularization workup prior to dc
Chief Complaint
-: Fever and Bacteremia
Subjective / Review of Systems
remains afebrile
increased wbc today - 48 hours post op
hgb improved
new thrombocytosis
L shift overall improved
cr 0.9
'I feel great' the epigastic pain has fully resolved, no cva tenderness or dysuria
Vital Signs / Physical Exam
Vital Signs
Vital Signs
Temp Pulse Resp BP Pulse Ox
98.0 F 105 18 120/98 97
11/03/23 07:00 11/03/23 08:50 11/03/23 07:00 11/03/23 07:00 11/03/23 08:50
Physical Exam
Constitutional: No Acute Distress
Cardiovascular: Regular Rate and S1/S2; Negative Murmur or Rub
Pulmonary: Clear and Symmetric; Negative Wheezes or Rales
Gastrointestinal: Soft, Tender (minimal RUQ tenderness with deep palpation, markedly improved), Non Distended and Normal Bowel Sounds
Skin: Warm and Dry; Negative Rash or Jaundice
Objective Data
Lab Data
Lab Results
11/03/23 08:13
11/02/23 04:25
PT 19.7 Sec (11.4-14.6) H 10/31/23 02:56
PT Cancelled 10/31/23 02:56
INR 1.65 10/31/23 02:56
INR Cancelled 10/31/23 02:56
APTT 75.0 Sec (23.4-35.0) H 11/01/23 05:24
Estimated Creat Clear 75 ml/min 11/02/23 04:25
Lactic Acid Cancelled 10/30/23 23:30
Total Bilirubin 1.1 mg/dl (0.2-1.3) 11/02/23 04:25
GGT 82 U/L (12-43) H 10/31/23 02:56
AST 44 U/L (14-36) H 11/02/23 04:25
ALT 50 U/L (0-35) H 11/02/23 04:25
Alkaline Phosphatase 174 U/L (38-126) H 11/02/23 04:25
Most recent labs reviewed.
Urine Culture Final 11/02/23
CC: Greater than 100,000 CFU/ML Klebsiella pneumoniae
Organism 1 Klebsiella pneumoniae
1. Klebsiella pneumoniae
M.I.C. RX
--------- ---
Amoxicillin/Potas. Clavulanate <=8/4 S
Ampicillin >16 R
Ampicillin/Sulbactam <=8/4 S
Cefazolin <=2 S
Ertapenem <=0.5 S
Ciprofloxacin <=0.25 S
Gentamicin <=4 S
Levofloxacin <=0.5 S
Meropenem <=1 S
Nitrofurantoin-Urine Only <=32 S
Piperacillin/Tazobactam <=16 S
Tobramycin <=4 S
Trimethoprim/Sulfamethoxazole <=2/38 S
Micro Results:
10/31/23 02:56 Blood Culture - Final
Blood/Venous Klebsiella pneumoniae
Gram Stain - Final
10/30/23 19:39 Blood Culture - Final
Blood/Venous Klebsiella pneumoniae
Gram Stain - Final
10/31/23 03:35 Urine Culture - Final
Urine Klebsiella pneumoniae
10/31/23 12:12 Blood Parasites Smear - Final
Blood/Venous
10/30/23 21:57 Influenza Types A & B (FELIPE) - Final
Nasal Swab Negative for Influenza A & B, NAAT
Negative results must be combined with clinical observations
and patient history.
Nucleic Acid Amplification test (NAAT)performed on the
[employer] platform.
[2023-11-03 15:00] VITALS: BP 143/88
[2023-11-03] MEDS: LIPITOR 20 MG PO (17:05)
[2023-11-03 19:15] VITALS: BP 154/93
[2023-11-03 21:09] VITALS: BP 146/93
[2023-11-03] MEDS: ZESTRIL 2.5 MG PO (21:10)
[2023-11-03] MEDS: MELATONIN PO ×2 (21:11→21:14)
[2023-11-03 23:25] VITALS: BP 152/98
[2023-11-04 03:35] VITALS: BP 145/86
[2023-11-04 07:44] VITALS: BP 149/87
[2023-11-04] MEDS: COLACE 100 MG PO (07:47)
[2023-11-04] MEDS: ZESTRIL 2.5 MG PO ×2 (07:47→19:47)
[2023-11-04] MEDS: LOW STRENGTH ASPIRIN 81 MG PO (07:48)
[2023-11-04] MEDS: VITAMIN B1 100 MG PO ×2 (07:48→19:47)
[2023-11-04] MEDS: KEFLEX 500 MG PO ×3 (07:48→17:17)
[2023-11-04] MEDS: LOPRESSOR 12.5 MG PO (07:48)
[2023-11-04] MEDS: PROTONIX 40 MG PO ×2 (07:48→19:46)
[2023-11-04] MEDS: FOLVITE 1 MG PO (07:49)
[2023-11-04 08:41] LABS: Hematocrit 29.2 % (37.0-47.0); Hemoglobin 10.1 g/dL (12.0-16.0); Mean Corp Hgb Conc. 34.6 g/dL (33.0-37.0); Mean Corpuscular Hgb 32.6 pg (27.0-31.0); Mean Corpuscular Volume 94.2 fL (81.0-99.0); Mean Platelet Volume 10.5 fL (7.4-10.4); Platelet Count 503 10^3/uL (130-400); Red Cell Dist. Width 14.6 % (11.5-14.5); White Blood Cell Count 25.1 10^3/uL (4.8-10.8)
[2023-11-04 09:09] LABS: Blood Urea Nitrogen 15 mg/dl (7-17); Carbon Dioxide 20 mmol/L (22-30); Chloride 108 mmol/L (98-107); Estimated Creatinine Clearance 63 ml/min; Glucose 110 mg/dl (70-99); Potassium 3.6 mmol/L (3.5-5.1); Sodium 137 mmol/L (135-145); eGFR 58.61
--- NOTE | 2023-11-04 09:29 | W.PN.HOSP.TC ---
Today's Communication/Plan
-
Continue Keflex and follow clinically--Monitor V/S
Assessment / Plan
Assessment / Plan
57 year old female
#Septic shock: Suspected source. Patient has Klebsiella pneumoniae bacteremia. CT of the abdomen pelvis with p.o. contrast shows Obstructive uropathy secondary to an 8 mm calculus at the left ureteropelvic junction causing moderate left
hydronephrosis. hemodynamics have improved and off of Levophed. s/p stent and Jerez placement. appreciate ID input--Second day of Keflex and to continue for a total of 6 days--White cell count continues to uptrend after antibiotic switch--will
follow clinically
#Abnormal troponins - suspected NSTEMI prior to admit - ECHO with wall motion abnormality noted. Asymptomatic without CP. Cards following. Ischemia evaluation planned for Sunday.
# Epigastric pain and tenderness-- Suspect gastritis. Improved--Keep on PPI.
# GB wall thickening without cholelithiasis - no RUQ tenderness at this time.
Nonspecific mildly enlarged periportal and retroperitoneal lymph nodes
Would need to follow once acute infectious issues are over.
#Anemia: Iron studies suggests Iron deficiency based on severely low iron saturation. s/p 2 units of PRBC. Hemoglobin improved (10.1). no obvious external bleeding. hemestool ordered-- Hold on iron treatment for now.
# Hypokalemia: POA--resolved-- replete if needed
# Prolonged QT: Improved. Replete potassium and magnesium if needed--avoid medications that prolong QT.
#Anxiety: Patient is calm this morning. appr psych. Patient declined further psych consults.
Anticipated Discharge: 24 - 48 hours
Subjective/Interval History
-
Date of Service: November 04, 2023
Patient is not in any apparent distress. She was able to take a shower in the morning and feels much better. Does not have any medical complaints. Was able to have a bowel movement this morning.
Objective Data
-
Labs:
Laboratory Results
11/04/23
08:10
WBC 25.1 H
Hgb 10.1 L
Hct 29.2 L
Plt Count 503 H
Sodium 137
Potassium 3.6
Chloride 108 H
Carbon Dioxide 20 L
BUN 15
Creatinine 1.1 H
Glucose 110 H
Calcium 9.0
Vital Signs:
Vital Signs
Temp Pulse Resp BP Pulse Ox
99.7 F 101 20 149/87 91
11/04/23 07:44 11/04/23 07:47 11/04/23 07:44 11/04/23 07:47 11/04/23 07:44
I&O
11/03/23 11/04/23 11/05/23
06:59 06:59 06:59
Intake Total 1240 / 1240 1919
Output Total 150 / 150
Balance 1090 / 1090 1919
Review of Systems
-
History Source: Patient
All other systems: Reviewed and negative
Physical Exam
-
General: No Apparent Distress
HEENT: Normocephalic and Moist Mucous Membranes
Respiratory: Clear to Auscultation
Cardiac: Regular Rhythm and S1/S2
GI: Nontender, Nondistended and Normal Bowel Sounds
Musculoskeletal: No Edema
Neuro: Awake, Alert, Oriented and AO x 3
Psych: Calm
--- NOTE | 2023-11-04 11:23 | W.PN.URO.CBU ---
Today's Communication / Plan
-
Cardiac cath scheduled for tomorrow
Will follow
Assessment / Plan
-
bacteremia- gu source- klebsiella
stone- s/p stent
pt improving
badillo out
discharge when medically stable to f/u with dr mclean
Diagnosis
-
Date of Service: November 04, 2023
-
Patient Diagnosis:
stone
sepsis from Klebsiella
---
Post Op Day:
left ureteral stent 10/31
Subjective
-
Feels much better
No dysuria or gross hematuria
Objective
-
Vital Signs
Temp Pulse Resp BP Pulse Ox
99.7 F 101 20 149/87 91
11/04/23 07:44 11/04/23 07:47 11/04/23 07:44 11/04/23 07:47 11/04/23 07:44
Intake and Output
11/03/23 11/04/23 11/05/23
06:59 06:59 06:59
Intake Total 1240 / 1240 1919
Output Total 150 / 150
Balance 1090 / 1090 1919
Intake:
Oral fluids 920 / 920 1919
IV fluids (Total) 320 / 320
Lr 1,000 ml @ 80 mls/hr IV . 320 / 320
[id number] CRISTOBAL Rx#:[id number]
Output:
Urine, [place] 150 / 150
Other:
Number of approximated MODERATE 1 3
amounts of urine
Number of approximated LARGE 1
amounts of urine
Laboratory Results
11/04/23 08:10
11/04/23 08:10
Review of Systems
-
Constitutional: Fatigue
Respiratory: No Symptoms
Cardiac: No Symptoms
Abdomen/GI: No Symptoms
: No Symptoms
Physical Exam
-
General - well developed, well nourished, no acute distress
Abdomen - soft, non-tender, no CVAT
[2023-11-04 11:43] VITALS: BP 147/88
--- NOTE | 2023-11-04 13:18 | CM ---
Patient seen in room, on the phone, asked CM to come back at another time. Per chart, cardia cath for tomorrow. CM will continue to follow for all discharge planning needs.
Plan; home no needs anticipated.
--- NOTE | 2023-11-04 13:32 | W.PN.UPDATE ---
Update Note
Progress Note Update
I saw and evaluated the patient. I reviewed the resident�s note and agree with findings and plan as documented in the resident�s note.
Patient decided yesterday to stay.
Anxiety improved.
Tolerating diet without nausea vomiting diarrhea. No fever or chills. Abdomen is benign. White count is going up with a change in antibiotics to oral route. Will discuss with ID regarding changing antibiotics.
No chest pains or shortness of breath. Await ischemia eval tomorrow.
Likely DC in a.m. after cardiac ischemia eval.
[2023-11-04 15:22] VITALS: BP 143/85
[2023-11-04] MEDS: LIPITOR 20 MG PO (17:17)
--- NOTE | 2023-11-04 17:25 | W.PN.ID1 ---
Date of Service
Date of Service: November 04, 2023
Today's Communication
- unclear cause of progressive leukocytosis - noncontrast ct abdomen ordered (patient already planned for IV contrast with cardiac cath in the AM), covid ag, repeat ua, if there is a fever then send blood cultures x2 sets while febrile
- would suggest getting most recent outpatient cbc in the am to establish a baseline
- switched back to cefepime for present
Assessment / Plan
Klebsiella bacteremia - possible source
Leukocytosis - markedly improved, reactive
Shock - resolved
Long QTc
Anxiety
- unclear cause of progressive leukocytosis - malaise and some mild URI type symptoms but not definitive, noncontrast ct abdomen ordered (patient already planned for IV contrast with cardiac cath in the AM), covid ag, repeat ua, if there is a fever
then send blood cultures x2 sets while febrile
- would suggest getting most recent outpatient cbc in the am to establish a baseline
- blood cultures and urine culture with K pneumoniae - cefazolin sensitive
- will be interested in the results of eventual LHC
- switched back to cefepime for present
- follow clinically, agree with completing revascularization workup prior to dc
Chief Complaint
-: Fever and Bacteremia
Subjective / Review of Systems
remains afebrile
bp stable
intermittent mild tachycardia
further progression of the leukocytosis now 25, progression of thrombocyotsis
cr stable
mild sinus tenderness, minimal nonproductive cough
No headache, sputum production, nausea, vomiting, diarrhea constipation, abdominal or flank pain, dysuria, new rashes, tenderness over PIVs, swelling of the limbs
Vital Signs / Physical Exam
Vital Signs
Vital Signs
Temp Pulse Resp BP Pulse Ox
99.5 F 97 16 143/85 94
11/04/23 15:22 11/04/23 15:22 11/04/23 15:22 11/04/23 15:22 11/04/23 15:22
Physical Exam
Constitutional: No Acute Distress
Cardiovascular: Regular Rate and S1/S2; Negative Murmur or Rub
Pulmonary: Clear and Symmetric; Negative Wheezes or Rales
Gastrointestinal: Soft, Non Tender, Non Distended and Normal Bowel Sounds
Skin: Warm and Dry; Negative Rash or Jaundice
Objective Data
Lab Data
Lab Results
11/04/23 08:10
11/04/23 08:10
PT 19.7 Sec (11.4-14.6) H 10/31/23 02:56
PT Cancelled 10/31/23 02:56
INR 1.65 10/31/23 02:56
INR Cancelled 10/31/23 02:56
APTT 75.0 Sec (23.4-35.0) H 11/01/23 05:24
Estimated Creat Clear 63 ml/min 11/04/23 08:10
Lactic Acid Cancelled 10/30/23 23:30
Total Bilirubin 1.1 mg/dl (0.2-1.3) 11/02/23 04:25
GGT 82 U/L (12-43) H 10/31/23 02:56
AST 44 U/L (14-36) H 11/02/23 04:25
ALT 50 U/L (0-35) H 11/02/23 04:25
Alkaline Phosphatase 174 U/L (38-126) H 11/02/23 04:25
Most recent labs reviewed.
Micro Results:
10/31/23 02:56 Blood Culture - Final
Blood/Venous Klebsiella pneumoniae
Gram Stain - Final
10/30/23 19:39 Blood Culture - Final
Blood/Venous Klebsiella pneumoniae
Gram Stain - Final
10/31/23 03:35 Urine Culture - Final
Urine Klebsiella pneumoniae
10/31/23 12:12 Blood Parasites Smear - Final
Blood/Venous
10/30/23 21:57 Influenza Types A & B (FELIPE) - Final
Nasal Swab Negative for Influenza A & B, NAAT
Negative results must be combined with clinical observations
and patient history.
Nucleic Acid Amplification test (NAAT)performed on the
[employer] platform.
[2023-11-04] MEDS: MAXIPIME 2000 MG IV (17:50)
[2023-11-04] MEDS: STERILE WATER FOR INJECTION 10 ML IV (17:51)
[2023-11-04 18:39] LABS: COVID-19 Antigen Negative (Negative)
[2023-11-04 19:20] VITALS: BP 145/85
[2023-11-04] MEDS: LOPRESSOR 25 MG PO (19:46)
[2023-11-04] MEDS: COLACE PO (19:50)
[2023-11-04] MEDS: MELATONIN PO (21:53)
[2023-11-04 23:04] VITALS: BP 121/81
[2023-11-05 00:20] LABS: Urine Albumin Trace (Neg - Trace); Urine Bilirubin Negative (Negative); Urine Character Clear (Clear); Urine Color Yellow; Urine Glucose Negative (Negative); Urine Ketone Negative (Negative); Urine Leukocyte 2+ (Negative); Urine Nitrite Negative (Negative); Urine Occult Blood Trace (Negative); Urine Urobilinogen Negative (Neg - 1+)
[2023-11-05 00:37] LABS: Urine Squamous Cell 16-20 /LPF (Few)
[2023-11-05 00:38] LABS: Urine Amorphous Seen; Urine Bacteria Moderate (Negative); Urine White Cell 70-80 /HPF (0-5); Urine Yeast Few (Negative)
[2023-11-05 00:39] LABS: Urine Red Blood Cell 0-2 /HPF (0-2)
[2023-11-05 03:19] VITALS: BP 125/68
[2023-11-05 06:00] VITALS: BMI 23.2
[2023-11-05] MEDS: STERILE WATER FOR INJECTION IV (06:03)
[2023-11-05] MEDS: MAXIPIME IV (06:03)
--- NOTE | 2023-11-05 06:37 | PTCARENOTE ---
Pt refused oral contrast dye. Notified ID Physician on-call Noa Adams. Per ID Physician, pt to skip oral contrast dye. This RN contacted CT. Plan of care ongoing.
[2023-11-05 07:45] VITALS: BP 130/74
[2023-11-05 07:54] LABS: Hematocrit 27.8 % (37.0-47.0); Hemoglobin 9.6 g/dL (12.0-16.0); Mean Corp Hgb Conc. 34.5 g/dL (33.0-37.0); Mean Corpuscular Hgb 31.8 pg (27.0-31.0); Mean Corpuscular Volume 92.1 fL (81.0-99.0); Mean Platelet Volume 10.1 fL (7.4-10.4); Platelet Count 559 10^3/uL (130-400); Red Blood Cell Count 3.02 10^6/uL (4.20-5.40); Red Cell Dist. Width 14.6 % (11.5-14.5)
[2023-11-05] MEDS: ZESTRIL 2.5 MG PO ×2 (08:35→19:46)
[2023-11-05] MEDS: LOPRESSOR 25 MG PO ×2 (08:35→19:46)
[2023-11-05] MEDS: LOW STRENGTH ASPIRIN 81 MG PO (08:35)
[2023-11-05] MEDS: PROTONIX 40 MG PO ×2 (08:35→19:40)
[2023-11-05] MEDS: FOLVITE 1 MG PO (08:35)
[2023-11-05] MEDS: VITAMIN B1 100 MG PO ×2 (08:35→19:40)
[2023-11-05] MEDS: MAXIPIME 2000 MG IV ×2 (08:36→18:13)
[2023-11-05] MEDS: STERILE WATER FOR INJECTION 10 ML IV ×2 (08:41→18:12)
[2023-11-05] MEDS: COLACE PO ×2 (08:42→19:40)
[2023-11-05 08:59] LABS: Blood Urea Nitrogen 13 mg/dl (7-17); Calcium 8.5 mg/dl (8.4-10.2); Carbon Dioxide 20 mmol/L (22-30); Chloride 108 mmol/L (98-107); Estimated Creatinine Clearance 69 ml/min; Glucose 90 mg/dl (70-99); Potassium 3.7 mmol/L (3.5-5.1); Sodium 135 mmol/L (135-145); eGFR > 60.00
--- NOTE | 2023-11-05 09:11 | W.PN.CD ---
Today's Communication / Plan
-
Continue cefepime.
Coronary angiography today to clarify coronary anatomy.
Anemia workup per primary team.
Impression / Plan
-
Impression/Plan: 57-year-old woman with a history of hypertension, admitted with septic shock/GNR bacteremia due to nephrolithiasis and pyelonephritis, found to have anemia, prolonged QT with hypokalemia and elevated troponin with distal
anterior/anteroseptal/apical hypokinesis and mildly reduced LVEF.
#Pyelonephritis/Nephrolithiasis/Sepsis
-Acute.
-Klebsiella bacteremia.
-S/P 6Fr x 24 cm left ureteral stent and 18Fr Jerez catheter.
-ABx per ID (Cefepime --> Cephalexin --> Cefepime).
-Repeat CT abdomen is reassuring.
#Abnormal troponin
-Troponin peaked at 6.
-Possible NSTEMI. Unclear type I or type II (secondary to sepsis + anemia).
-Echo with distal septal, distal anteroseptal, distal anterior and apical hypokinesis.
-Presume ME prior to admit. Takotsubo would be a possibility but echo not classic and this is dx of exclusion.
-Discussed with urology. Ureteral stent is not extremely time dependent and can be left in place for 32+ days (minimum for DAPT in case of PCI) and as long as 3-4 months.
-Continue aspirin, atorvastatin, heparin and metoprolol.
-Plan for cardiac catheterization today to clarify coronary anatomy.
#Anemia
-Severe, improving. Transfused 2 units of PRBC's. H/H currently holding steady.
-There is some component of Fe deficiency (FeSat = 7%) but a Ferritin of 909 essentially rules this out as a primary cause.
-B12/Folate are WNL.
-MCV is normal. No thrombocytopenia to suggest consumptive coagulopathy. Mildly elevated bilirubin raises the possibility of non-MAHA hemolysis, but this has normalized.
-There is certainly a dilutional part and there may be some marrow suppression from sepsis.
-Agree with heme-occult.
#Syncope
-Occurred prior to evaluation at [facility] earlier this week.
-May have been related to hypotension and volume depletion in the setting of suspected sepsis and antihypertensive medication.
-Metabolic disturbance leading to prolonged QT (with myocardial dysfunction - possibly ischemic) raises the possibility of cardiogenic source.
-Continue to monitor blood pressures. Stable on telemetry.
Subjective/Interval History:
The patient has had persistently rising WBC since switching ABX from cefepime to cephalexin.
Cefepime restarted. WBC falling again, down to 20K (from 25.1 K).
Repeat CT abdomen ordered by ID, now showing resolution of hydronephrosis, increased bilateral pleural effusions.
Weight is up 3.5 kg from 11/02/2023 (75.523 kg, 72 kg on 11/01, 68.3 kg on 10/29).
Persistent NAGMA (HCO3 = 20, AG = 8).
DATA:
TTE, 10/31/2023:
CONCLUSIONS
Mildly reduced left ventricular function with estimated ejection fraction 45-50%.
Distal septal, distal anteroseptal, distal anterior and apical hypokinesis
Mild to moderate mitral regurgitation
Mild tricuspid regurgitation.
CT Abdomen/Pelvis, 11/05/2023:
IMPRESSION:
Interval placement of left-sided ureteral stent with resolution of the previously seen left-sided hydronephrosis. Unchanged appearance of the left renal stones.
Increased moderate bilateral pleural effusions with likely adjacent compressive atelectasis. Small pericardial effusion, unchanged.
Unchanged mildly prominent retroperitoneal lymph nodes, which may be reactive.
Physical Exam
Vital Signs/Labs
Vital Signs
Temp Pulse Resp BP Pulse Ox
37.1 C 81 19 130/74 93
11/05/23 07:45 11/05/23 07:45 11/05/23 07:45 11/05/23 07:45 11/05/23 03:19
11/03/23 11/04/23 11/05/23
11:59 11:59 11:59
Actual Weight 75.523 kg
11/05/23 07:40
11/05/23 07:40
PT 19.7 Sec (11.4-14.6) H 10/31/23 02:56
PT Cancelled 10/31/23 02:56
INR 1.65 10/31/23 02:56
INR Cancelled 10/31/23 02:56
APTT 75.0 Sec (23.4-35.0) H 11/01/23 05:24
Magnesium 1.9 mg/dl (1.6-2.3) 11/02/23 04:25
Triglycerides 270 mg/dl (10-149) H 11/03/23 08:13
LDL Cholesterol, Calc 96 mg/dl 11/03/23 08:13
VLDL Cholesterol, Calc 54 mg/dl (0-30) H 11/03/23 08:13
HDL Cholesterol 12 mg/dl 11/03/23 08:13
Free T4 2.52 ng/dl (0.78-2.19) H 10/31/23 02:56
Physical Exam
Constitutional: No acute distress and Comfortable
EENT: Anicteric and Moist mucous membranes
Cardiovascular: Rhythm & rate is regular, Pedal edema is absent, JVD pressure is normal, S1S2 is normal and Murmur/rub/gallop absent
Respiratory: Respiratory effort normal, Lungs clear to auscul., Wheeze Absent, Crackles Absent and Rhonchi Absent
GI: Soft, Distention absent, Flat, Non tender and Normal bowel sounds
Neuro/Psych: AO x 3
Data Reviewed
-
Date of Service: November 05, 2023
Medical Decision Making: Reviewed Test Results, Independent Historian Assessment, Test Interpretation and Review of Case with other Provider
EKG: Tracing Personally Visualized and interpreted and Report Reviewed by me
Echo: Tracing Personally Visualized and interpreted and Report Reviewed by me
X-Ray/CT/US/MRI/NUC/PET: Image Personally Visualized and interpreted and Report Reviewed by me
Labs: Labs Reviewed by me
Old Records: Reviewed
[2023-11-05 10:59] VITALS: BP 127/71
[2023-11-05 14:30] VITALS: BP 140/70
--- NOTE | 2023-11-05 15:14 | ITS.CL.CATH ---
Emergency Room Clerk - Catheterization
Cardiac Catheterization
Procedure Report:
CARDIAC CATHETERIZATION REPORT
Date of Procedure: 11/05/2023
Referring: Carrillo Thornton M.D.
INDICATION: Abnormal troponin, abnormal wall motion on echocardiogram.
PROCEDURE:
1. Left heart catheterization.
2. Coronary angiography.
3. Left ventriculography.
ACCESS:
6 Swedish right radial artery.
CATHETERS:
1. 5 Swedish JR4.
2. 5 Swedish JL 3.5.
3. 5 Swedish angled pigtail.
HEMODYNAMIC DATA
Weight (kg): 75.3
AO (s/d/x, mmHg): 135/78/102
LV (s/x mmHg): 138/32 (A wave to 50)
LEFT VENTRICULOGRAPHY: Performed in an DASILVA projection. Normal left ventricular size and systolic function without regional wall motion abnormality. Left ventricular ejection fraction estimated at 60%. There is mild mitral valve regurgitation.
There is no aortic valve insufficiency. The aortic root and visualized descending aorta appear normal.
CORONARY ANGIOGRAPHY
Dominance: Right.
Left Main: Normal size, trifurcating vessel. There is no coronary artery disease.
LAD: Normal size vessel giving rise to 1 diagonal before wrapping around the apex and supplying the inferior septum. There is a 30% lesion in the mid vessel.
Ramus: Small to medium size vessel. The vessel is extremely tortuous in its midsection. There is no coronary artery disease.
Circumflex: Normal size, nondominant vessel giving rise to a single obtuse marginal. The obtuse marginal is extremely tortuous in its midsection. There is no coronary artery disease.
RCA: Large size, dominant vessel. There is no coronary artery disease. The terminal RPDA and right posterolateral branches are all severely tortuous.
INTERVENTION(S)
None.
Closure Device: Vascular band.
Radiation (mGy): 389.03
DAP (cm2.Gy): 38.2893
Fluoroscopy time (minutes): 2.4
Sedation time (minutes): 29
CONCLUSIONS
1. Right dominant circulation with severe tortuosity in the obtuse marginal and terminal RCA vessels and a 30% lesion in the mid LAD.
2. Normal left ventricular size and systolic function. Left ventricular ejection fraction estimated at 60%.
3. Severely elevated filling pressures (LVEDP = 32 mmHg at 75.3 kg) with evidence of significant diastolic dysfunction (A wave to 50 mmHg).
RECOMMENDATIONS:
1. Expectant management after cardiac catheterization via right radial approach.
2. Limited weight bearing on the right wrist for one week.
3. Continue primary prevention therapy with high-dose, high potency statin.
4. The patient would benefit from volume reduction. She is probably volume overloaded given aggressive resuscitation for her sepsis. Start diuretics.
5. I suspect that her initial presentation of troponin elevation and wall motion abnormality was due to septic myocardial dysfunction. This appears to have resolved.
Copy to: Carrillo Thornton M.D., JEMAL Mulligan
Sonny Lee DO, FACC, FACP
--- NOTE | 2023-11-05 15:20 | W.PN.ID1 ---
Date of Service
Date of Service: November 05, 2023
Today's Communication
- continue cefepime for today; tomorrow will likely transition to quinolone and suggest follow overnight if no additional pathogen IDd
Assessment / Plan
Klebsiella bacteremia
Complicated UTI
Leukocytosis - markedly improved, reactive
Shock - resolved
Long QTc
Anxiety
- unclear cause of progressive leukocytosis - malaise and some mild URI type symptoms but not definitive
- CT abdomen nonfocal - note possible reactive LNs and functional appearing stent without new abscess
- covid ag neg
- repeat ua increased pyuria, follow up repeat urine culture
- would suggest getting most recent outpatient cbc in the am to establish a baseline
- blood cultures and urine culture with K pneumoniae
- reviewed [facility] results
- continue cefepime for today; tomorrow will likely transition to quinolone and suggest follow overnight if no additional pathogen IDd
Chief Complaint
-: Fever and Bacteremia
Subjective / Review of Systems
remains afebrile
bp stable
improved leukocytosis, progressive thrombocytosis
cr 1.0
CT a/p without a focus of new infection
'I feel 100% better'
some new suprapubic tenderness
Vital Signs / Physical Exam
Vital Signs
Vital Signs
Temp Pulse Resp BP Pulse Ox
98.6 F 78 20 127/71 94
11/05/23 10:59 11/05/23 10:59 11/05/23 10:59 11/05/23 10:59 11/05/23 10:59
Physical Exam
Constitutional: No Acute Distress
Cardiovascular: Regular Rate and S1/S2; Negative Murmur or Rub
Pulmonary: Clear and Symmetric; Negative Wheezes or Rales
Gastrointestinal: Soft, Non Tender, Non Distended and Normal Bowel Sounds
Genito-Urinary: Suprapubic Tenderness (mild new)
Skin: Warm and Dry; Negative Rash or Jaundice
Objective Data
Lab Data
Lab Results
11/05/23 07:40
11/05/23 07:40
PT 19.7 Sec (11.4-14.6) H 10/31/23 02:56
PT Cancelled 10/31/23 02:56
INR 1.65 10/31/23 02:56
INR Cancelled 10/31/23 02:56
APTT 75.0 Sec (23.4-35.0) H 11/01/23 05:24
Estimated Creat Clear 69 ml/min 11/05/23 07:40
Lactic Acid Cancelled 10/30/23 23:30
Total Bilirubin 1.1 mg/dl (0.2-1.3) 11/02/23 04:25
GGT 82 U/L (12-43) H 10/31/23 02:56
AST 44 U/L (14-36) H 11/02/23 04:25
ALT 50 U/L (0-35) H 11/02/23 04:25
Alkaline Phosphatase 174 U/L (38-126) H 11/02/23 04:25
Most recent labs reviewed.
Micro Results:
11/05/23 00:07 Urine Culture - Pending
Urine
10/31/23 02:56 Blood Culture - Final
Blood/Venous Klebsiella pneumoniae
Gram Stain - Final
10/30/23 19:39 Blood Culture - Final
Blood/Venous Klebsiella pneumoniae
Gram Stain - Final
10/31/23 03:35 Urine Culture - Final
Urine Klebsiella pneumoniae
10/31/23 12:12 Blood Parasites Smear - Final
Blood/Venous
10/30/23 21:57 Influenza Types A & B (FELIPE) - Final
Nasal Swab Negative for Influenza A & B, NAAT
Negative results must be combined with clinical observations
and patient history.
Nucleic Acid Amplification test (NAAT)performed on the
[employer] platform.
--- NOTE | 2023-11-05 16:13 | CM ---
Patient seen at bedside with physicians. Patient confirmed plan for possible discharge tomorrow. CM will continue to follow for discharge planning needs.
Plan;home with no needs vs home with VN
--- NOTE | 2023-11-05 17:38 | W.PN.HOSP.TC ---
Addendum entered and electronically signed by Mikki Alicia MD 11/05/23 19:16:
I saw and evaluated the patient independently. I reviewed the resident�s note and agree with findings and plan as documented by Dr. Colin.
GENERAL: well developed, well nourished, female in no apparent distress
HEENT: NC/AT
HEART: regular rate and rhythm, +S1, +S2
LUNGS : clear to auscultation bilaterally
ABDOM: soft, nontender, nondistended, + bowel sounds
EXT: no cyanosis, clubbing, or edema--right wrist with cath access device in place
NEUROLOGIC: grossly intact
Septic shock due to Klebsiella pneumonia UTI with bacteremia likely from left renal stone-- CT of the abdomen pelvis with p.o. contrast shows Obstructive uropathy secondary to an 8 mm calculus at the left ureteropelvic junction causing moderate
left hydronephrosis-- Hemodynamics have improved and off of Levophed-- s/p stent and Jerez placement, apprec urology-- WBC went from 11.9 on 11/01 to 25.1 on 11/03. ID consulted. Unclear cause of progressive leukocytosis. Antibiotics switched to
cefepime per ID--- Abdominal/pelvic CT revealed an unchanged appearance of the left renal stone, increased moderate bilateral effusions with likely adjacent compressive atelectasis. Small pericardial effusion, unchanged--Unchanged mildly prominent
retroperitoneal lymph nodes, which may be reactive.
Abnormal troponins--- suspected NSTEMI prior to admit- ECHO noted distal septal, distal anteroseptal, distal anterior and apical hypokinesis-- s/p cardiac catheterization, french teacher suspects elevated troponins to be due to septic myocardial
dysfunction- Elevated filling pressures are also noted with evidence of significant diastolic dysfunction. Cards suspect volume overload given aggressive resuscitation for sepsis- Chest x-ray 11/03 revealed interstitial pulmonary edema with small
bilateral pleural effusions.
Epigastric pain and tenderness-- Suspect gastritis. Improved--Keep on PPI.
GB wall thickening without cholelithiasis - no RUQ tenderness at this time--Would need to follow up once acute infectious issues are over.
chronic Anemia: Iron studies suggests Iron deficiency based on severely low iron saturation-- s/p 2 units of PRBC. Hemoglobin went from 10.1 to 9.6 on 11/04. no obvious external bleeding. heme stool ordered-- Hold on iron treatment for now.
Hypokalemia: POA--resolved-- replete if needed
Prolonged QT: Improved. Replete potassium and magnesium if needed--avoid medications that prolong QT.
Anxiety: Patient is calm this morning. appr psych. Patient declined further psych consults.
code status -- FULL CODE
anticipate d/c tomorrow
Original Note:
Today's Communication/Plan
-
-Catheterization today ruled out any ischemic etiology. Patient is feeling good. Anticipate discharge tomorrow.
Assessment / Plan
Assessment / Plan
57 year old female
#Septic shock: Suspected source.
- Patient has Klebsiella pneumoniae bacteremia.
- CT of the abdomen pelvis with p.o. contrast shows Obstructive uropathy secondary to an 8 mm calculus at the left ureteropelvic junction causing moderate left hydronephrosis.
- Hemodynamics have improved and off of Levophed.
- s/p stent and Jerez placement.
- WBC went from 11.9 on 11/01 to 25.1 on 11/03. ID consulted. Unclear cause of progressive leukocytosis. Antibiotics switched to cefepime per ID.
- Abdominal/pelvic CT revealed an unchanged appearance of the left renal stone, increased moderate bilateral effusions with likely adjacent compressive atelectasis. Small pericardial effusion, unchanged.
Unchanged mildly prominent retroperitoneal lymph nodes, which may be reactive.
#Abnormal troponins
- suspected NSTEMI prior to admit
- ECHO noted distal septal, distal anteroseptal, distal anterior and apical hypokinesis.
- Asymptomatic without CP. Cards following.
- After cardiac catheterization, french teacher suspects elevated troponins to be due to septic myocardial dysfunction.
- Elevated filling pressures are also noted with evidence of significant diastolic dysfunction. Cards suspect volume overload given aggressive resuscitation for sepsis.
- Chest x-ray 11/03 revealed interstitial pulmonary edema with small bilateral pleural effusions.
# Epigastric pain and tenderness-- Suspect gastritis. Improved--Keep on PPI.
# GB wall thickening without cholelithiasis - no RUQ tenderness at this time.
Nonspecific mildly enlarged periportal and retroperitoneal lymph nodes
Would need to follow once acute infectious issues are over.
#Anemia: Iron studies suggests Iron deficiency based on severely low iron saturation. s/p 2 units of PRBC. Hemoglobin went from 10.1 to 9.6 on 11/04. no obvious external bleeding. hemestool ordered-- Hold on iron treatment for now.
# Hypokalemia: POA--resolved-- replete if needed
# Prolonged QT: Improved. Replete potassium and magnesium if needed--avoid medications that prolong QT.
#Anxiety: Patient is calm this morning. appr psych. Patient declined further psych consults.
Anticipated Discharge: Within 24 hours
Subjective/Interval History
-
Date of Service: November 05, 2023
Objective Data
-
Labs:
Laboratory Results
11/05/23
07:40
WBC 20.0 H
Hgb 9.6 L
Hct 27.8 L
Plt Count 559 H
Sodium 135
Potassium 3.7
Chloride 108 H
Carbon Dioxide 20 L
BUN 13
Creatinine 1.0
Glucose 90
Calcium 8.5
Vital Signs:
Vital Signs
Temp Pulse Resp BP Pulse Ox
98.7 F 90 19 140/70 100
11/05/23 14:30 11/05/23 14:30 11/05/23 14:30 11/05/23 14:30 11/05/23 14:30
I&O
11/04/23 11/05/23 11/06/23
06:59 06:59 06:59
Intake Total 1920 / 1920 840 / 840
Output Total 300 / 300
Balance 192 / 192 540 / 540
Review of Systems
-
History Source: Patient
Constitutional: Denies Fever
Respiratory: Reports No Symptoms
Cardiac: Reports No Symptoms
Abdomen/GI: Reports No Symptoms
Genitourinary: Reports No Symptoms
Physical Exam
-
General: Well Developed
HEENT: Normocephalic
Respiratory: Clear to Auscultation
Cardiac: Regular Rhythm and S1/S2
GI: Soft and Nontender
Musculoskeletal: No Clubbing, No Cyanosis and No Edema
Neuro: AO x 3
Psych: Calm
Data Reviewed
-
Labs: Labs Reviewed by me, Discussed with Physician and Discussed with Patient
[2023-11-05 19:18] VITALS: BP 136/76
[2023-11-05] MEDS: MELATONIN PO (22:05)
[2023-11-05 23:31] VITALS: BP 114/65
[2023-11-06 03:27] VITALS: BP 117/71
[2023-11-06] MEDS: MAXIPIME 2000 MG IV (05:56)
[2023-11-06] MEDS: STERILE WATER FOR INJECTION 10 ML IV (05:57)
[2023-11-06 06:00] VITALS: BMI 23.1
[2023-11-06 07:35] VITALS: BP 136/76
--- NOTE | 2023-11-06 07:52 | W.PN.URO.CBU ---
Today's Communication / Plan
-
recheck wbc
outpt f/u for stone management
Assessment / Plan
-
bacteremia- gu source- klebsiella
stone- s/p stent
recheck wbc today- but surgically appears stable- stent in good position/no hydro/no abscess
when stable- discharge and pt to schedule outpt f/u to review definitive stone treatment
Diagnosis
-
Date of Service: November 06, 2023
-
Patient Diagnosis:
stone
sepsis from Klebsiella
---
Post Op Day:
left ureteral stent 10/31
Subjective
-
pt feels well
no fevers/wbc was up yesterday; ct scan performed- stent in good position- no hydro- no evid of abscess
had heart cath- no intervention of blood thinners required
Objective
-
Vital Signs
Temp Pulse Resp BP Pulse Ox
98.4 F 84 18 117/71 92
11/06/23 03:27 11/06/23 03:27 11/06/23 03:27 11/06/23 03:27 11/06/23 03:27
Intake and Output
11/05/23 11/06/23 11/07/23
06:59 06:59 06:59
Intake Total 840 / 840 880 / 880
Output Total 300 / 300
Balance 540 / 540 880 / 880
Intake:
Oral fluids 840 / 840 880 / 880
Output:
Urine, Voided 300 / 300
Other:
Number of approximated MODERATE 2 2
amounts of urine
Number of approximated LARGE 2
amounts of urine
Review of Systems
-
Constitutional: Fatigue
Respiratory: No Symptoms
Cardiac: No Symptoms
Abdomen/GI: No Symptoms
: Frequency
Physical Exam
-
General - no acute distress
Abdomen - benign
[2023-11-06] MEDS: ZESTRIL 2.5 MG PO (07:59)
[2023-11-06] MEDS: VITAMIN B1 100 MG PO (07:59)
[2023-11-06] MEDS: PROTONIX 40 MG PO (07:59)
[2023-11-06] MEDS: COLACE PO (07:59)
[2023-11-06] MEDS: LOPRESSOR 25 MG PO (07:59)
[2023-11-06] MEDS: FOLVITE 1 MG PO (07:59)
[2023-11-06 08:45] LABS: % Basophils 0.4 % (0-2); % Eosinophils 1.9 % (0-6); % Immature Granulocytes 7.4 % (0-0.5); % Lymphocytes 16.5 % (20.5-51.1); % Monocytes 5.5 % (1.7-9.3); % Neutrophils 68.3 % (42.2-75.2); Absolute Basophils 0.1 10^3/uL (0-0.2); Absolute Eosinophils 0.3 10^3/uL (0-0.7); Absolute Lymphocytes 2.3 10^3/uL (1.2-3.4); Absolute Monocytes 0.8 10^3/uL (0.1-0.6); Absolute Neutrophils 9.5 10^3/uL (1.4-6.5); Hematocrit 29.2 % (37.0-47.0); Hemoglobin 9.6 g/dL (12.0-16.0); Mean Corp Hgb Conc. 32.9 g/dL (33.0-37.0); Mean Corpuscular Hgb 31.3 pg (27.0-31.0); Mean Corpuscular Volume 95.1 fL (81.0-99.0); Mean Platelet Volume 10.1 fL (7.4-10.4); Nucleated Red Blood Cells % 0 %; Platelet Count 551 10^3/uL (130-400); Red Blood Cell Count 3.07 10^6/uL (4.20-5.40); Red Cell Dist. Width 15.1 % (11.5-14.5)
[2023-11-06 08:58] LABS: Blood Urea Nitrogen 13 mg/dl (7-17); Calcium 8.4 mg/dl (8.4-10.2); Carbon Dioxide 21 mmol/L (22-30); Chloride 107 mmol/L (98-107); Estimated Creatinine Clearance 77 ml/min; Glucose 83 mg/dl (70-99); Sodium 136 mmol/L (135-145); eGFR > 60.00
--- NOTE | 2023-11-06 09:36 | W.PN.HOSP.TC ---
Addendum entered and electronically signed by Mikki Alicia MD 11/06/23 20:30:
I saw and evaluated the patient independently. I reviewed the resident�s note and agree with findings and plan as documented by Dr. Colin.
GENERAL: well developed, well nourished, female in no apparent distress
HEENT: NC/AT
HEART: regular rate and rhythm, +S1, +S2
LUNGS : clear to auscultation bilaterally
ABDOM: soft, nontender, nondistended, + bowel sounds
EXT: no cyanosis, clubbing, or edema
NEUROLOGIC: grossly intact
Septic shock due to Klebsiella pneumonia UTI with bacteremia likely from left renal stone-- CT of the abdomen pelvis with p.o. contrast shows Obstructive uropathy secondary to an 8 mm calculus at the left ureteropelvic junction causing moderate
left hydronephrosis-- Hemodynamics have improved and off of Levophed-- s/p stent and Jerez placement, apprec urology-- WBC improved--apprec ID consult--Antibiotics switched to cefepime per ID--- Abdominal/pelvic CT revealed an unchanged appearance
of the left renal stone, increased moderate bilateral effusions with likely adjacent compressive atelectasis. Small pericardial effusion, unchanged--Unchanged mildly prominent retroperitoneal lymph nodes, which may be reactive.
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
dysfunction- Elevated filling pressures are also noted with evidence of significant diastolic dysfunction. Cards suspect volume overload given aggressive resuscitation for sepsis-cont diuresis-- Chest x-ray 11/03 revealed interstitial pulmonary edema
with small bilateral pleural effusions.
Epigastric pain and tenderness-- Suspect gastritis. Improved--Keep on PPI.
GB wall thickening without cholelithiasis - no RUQ tenderness at this time--Would need to follow up once acute infectious issues are over.
chronic Anemia: Iron studies suggests Iron deficiency based on severely low iron saturation-- s/p 2 units of PRBC. Hgb stable-- no obvious external bleeding-- heme stool ordered-- Hold on iron treatment for now.
Hypokalemia: POA--resolved-- replete if needed
Prolonged QT: Improved. Replete potassium and magnesium if needed--avoid medications that prolong QT.
Anxiety: Patient is calm this morning. appr psych. Patient declined further psych consults.
code status -- FULL CODE
d/c
Original Note:
Today's Communication/Plan
-
Patient is being discharged on 500mg ciprofloxacin BID PO for 13 days per ID. Also 3 days lasix 20mg daily PO and KCL 20mEq BID PO per Cardiology. Patient recommended to weigh herself daily to trend weight. Recommended to follow up with PCP for
repeat CBC and BMP to evaluate renal function on lasix.
Assessment / Plan
Assessment / Plan
57 year old female
#Septic shock: Suspected source.
- Patient has Klebsiella pneumoniae bacteremia.
- CT of the abdomen pelvis with p.o. contrast shows Obstructive uropathy secondary to an 8 mm calculus at the left ureteropelvic junction causing moderate left hydronephrosis.
- Hemodynamics have improved and off of Levophed.
- s/p stent and Jerez placement.
- Antibiotics switched to cefepime 11/04 per ID due to progressive leukocytosis. 11/05 WBC downtrended to 14.0. Discharging patient on 500mg BID ciprofloxacin PO per ID.
- ID recommended that if QTc <500, ciprofloxacin is okay. QTc upon discharge 488ms.
- Abdominal/pelvic CT revealed an unchanged appearance of the left renal stone, increased moderate bilateral effusions with likely adjacent compressive atelectasis. Small pericardial effusion, unchanged. Unchanged mildly prominent retroperitoneal
lymph nodes, which may be reactive. Will follow up for stone removal in outpatient setting.
#Abnormal troponins
- suspected NSTEMI prior to admit
- ECHO noted distal septal, distal anteroseptal, distal anterior and apical hypokinesis.
- Asymptomatic without CP. Cards following.
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
- Elevated filling pressures are also noted with evidence of significant diastolic dysfunction. Cards suspect volume overload given aggressive resuscitation for sepsis.
- Started on one dose of IV lasix and sent home on 3 days lasix and KCL 20mEq BID per cardiology recommendation.
- Chest x-ray 11/03 revealed interstitial pulmonary edema with small bilateral pleural effusions.
- 11/04 asymptomatic. Cardiac issue resolved.
# Epigastric pain and tenderness-- Suspect gastritis. Improved--Keep on PPI.
# GB wall thickening without cholelithiasis
- no RUQ tenderness at this time.
- Nonspecific mildly enlarged periportal and retroperitoneal lymph nodes
- Would need to follow once acute infectious issues are over.
#Anemia:
- Iron studies suggests Iron deficiency based on severely low iron saturation.
- s/p 2 units of PRBC.
- Hemoglobin went from 10.1 to 9.6 on 11/04. 11/05 hemoglobin stable at 9.6.
- no obvious external bleeding. hemestool ordered-- Hold on iron treatment for now.
# Hypokalemia: POA--resolved-- replete if needed
# Prolonged QT: Improved. Replete potassium and magnesium if needed--avoid medications that prolong QT.
#Anxiety: Patient is calm this morning. appr psych. Patient declined further psych consults.
Anticipated Discharge: Today
Subjective/Interval History
-
Date of Service: November 06, 2023
Objective Data
-
Labs:
Laboratory Results
11/06/23
07:33
WBC 14.0 H
Hgb 9.6 L
Hct 29.2 L
Plt Count 551 H
Sodium 136
Potassium 4.0
Chloride 107
Carbon Dioxide 21 L
BUN 13
Creatinine 0.9
Glucose 83
Calcium 8.4
Vital Signs:
Vital Signs
Temp Pulse Resp BP Pulse Ox
98.4 F 88 18 136/76 94
11/06/23 03:27 11/06/23 07:35 11/06/23 07:35 11/06/23 07:35 11/06/23 07:35
I&O
11/05/23 11/06/23 11/07/23
06:59 06:59 06:59
Intake Total 840 / 840 880 / 880
Output Total 300 / 300
Balance 540 / 540 880 / 880
Review of Systems
-
History Source: Patient
EENT: Reports Other (left sided neck pain)
Respiratory: Reports No Symptoms
Cardiac: Reports No Symptoms
Abdomen/GI: Reports No Symptoms
Genitourinary: Reports No Symptoms
Physical Exam
-
General: Well Developed
HEENT: Other (Left neck tender to palpation)
Respiratory: Clear to Auscultation
Cardiac: Regular Rhythm and S1/S2
GI: Soft and Nontender
Neuro: AO x 3
Psych: Calm
--- NOTE | 2023-11-06 10:15 | W.PN.CD ---
Today's Communication / Plan
-
--
-
IV Lasix with PO KCl now and home with a few days of Lasix and KCl until back at admit weight
Consider aggressive lipid control once recovered from this illness
Watch for HFpEF in the future, hope we do not see that develop
Cardiology will sign off. Pt can see Dr. Thornton in follow up but if she prefers her PCP can manage her
-
-
Impression / Plan
-
Impression/Plan: 57-year-old woman with a history of hypertension, admitted with septic shock/GNR bacteremia due to nephrolithiasis and pyelonephritis, found to have anemia, prolonged QT with hypokalemia and elevated troponin with distal
anterior/anteroseptal/apical hypokinesis and mildly reduced LVEF.
Acute volume overload
- Etiology => fluid / volume resuscitation + her transient cardiomyopathy
- CXR c/w volume overload
- LVEDP c/w volume overload
- IV LASIX with PO KCl NOW and daily (can be as out-patient) until back to admit weight (3-7 days I would think)
- Small chance her home HCTZ was treating chronic HFpEF, I explained that to patient
Abnormal troponin, peak 6
- Cath shows resolution of wall motion and only 30% mLAD => NONISCHEMIC MYOCARDIAL INJURY from SEPSIS
Nonobstructive CAD
- Consider aggressive lipid control once recovered from this illness
Chronic HTN
- Was on Valsartan and HCTZ 25 a day prior to admit
- OK to manage w/o diuretic but if diuretic needed she will need KCl the additon of a K+ sparing diuretic
Pyelonephritis/Nephrolithiasis/Sepsis => improved
Anemia, s/p transfusion, etiology uncertain
Syncope
-Occurred prior to evaluation at [facility] earlier this week.
-May have been related to hypotension and volume depletion in the setting of suspected sepsis and antihypertensive medication.
-Metabolic disturbance leading to prolonged QT (with myocardial dysfunction - possibly ischemic) raises the possibility of cardiogenic source.
-Continue to monitor blood pressures. Stable on telemetry.
Subjective/Interval History:
Still with YU
Cath site is normal
No cath related complication
55 min spent with pt with time expaining cardiac issues and HTN to patient
Physical Exam
Vital Signs/Labs
Vital Signs
Temp Pulse Resp BP Pulse Ox
98.4 F 88 18 136/76 94
11/06/23 03:27 11/06/23 07:35 11/06/23 07:35 11/06/23 07:35 11/06/23 07:35
11/05/23 11/06/23 11/07/23
06:59 06:59 06:59
Actual Weight 75.523 kg 75.041 kg
11/06/23 07:33
11/06/23 07:33
PT 19.7 Sec (11.4-14.6) H 10/31/23 02:56
PT Cancelled 10/31/23 02:56
INR 1.65 10/31/23 02:56
INR Cancelled 10/31/23 02:56
APTT 75.0 Sec (23.4-35.0) H 11/01/23 05:24
Magnesium 1.9 mg/dl (1.6-2.3) 11/02/23 04:25
Triglycerides 270 mg/dl (10-149) H 11/03/23 08:13
LDL Cholesterol, Calc 96 mg/dl 11/03/23 08:13
VLDL Cholesterol, Calc 54 mg/dl (0-30) H 11/03/23 08:13
HDL Cholesterol 12 mg/dl 11/03/23 08:13
Free T4 2.52 ng/dl (0.78-2.19) H 10/31/23 02:56
Physical Exam
Constitutional: No acute distress
EENT: Anicteric
Cardiovascular: Rhythm & rate is regular and Pedal edema is absent
Respiratory: Crackles Absent (at right base)
GI: Soft and Distention absent
Neuro/Psych: AO x 3
Other: Cath Site (normal)
Data Reviewed
-
Date of Service: November 06, 2023
[2023-11-06] MEDS: KCL 40 MEQ PO (10:36)
[2023-11-06] MEDS: LASIX 20 MG IV (10:36)
[2023-11-06 10:38] VITALS: BP 134/86; PULSE 84; O2SAT 95
[2023-11-06 10:45] VITALS: BP 124/70
--- NOTE | 2023-11-06 11:03 | W.PN.ID1 ---
Date of Service
Date of Service: November 06, 2023
Today's Communication
- switch to ciprofloxacin 500 mg PO BID x 13 more days
- await repeat ekg, if QTc <500 then stable for dc
- requesting dc which is reasonable, she will contact me if a relapse in symptoms (which seems unlikely)
Assessment / Plan
Klebsiella bacteremia - resolved
Complicated UTI
Leukocytosis - markedly improved, reactive
Shock - resolved
Long QTc
Anxiety
- improved leukocytosis on cefepime
- CT abdomen nonfocal - note possible reactive LNs and functional appearing stent without new abscess
- covid ag neg
- repeat ua increased pyuria, repeat urine culture remains negative
- 10/30 blood cultures and urine culture with K pneumoniae
- switch to ciprofloxacin 500 mg PO BID x 13 more days
- await repeat ekg, if QTc <500 then stable for dc
- requesting dc which is reasonable, she will contact me if a relapse in symptoms (which seems unlikely)
Chief Complaint
-: Fever and Bacteremia
Subjective / Review of Systems
afebrile
bp stable
further improved leukocytosis
cr stable
slightly better thrombocytosis
repeat ua neg
no new complaints
dressed - requesting dc
Vital Signs / Physical Exam
Vital Signs
Vital Signs
Temp Pulse Resp BP Pulse Ox
98.4 F 88 18 136/76 94
11/06/23 03:27 11/06/23 07:35 11/06/23 07:35 11/06/23 07:35 11/06/23 07:35
Physical Exam
Constitutional: No Acute Distress
Cardiovascular: Regular Rate and S1/S2; Negative Murmur or Rub
Pulmonary: Clear and Symmetric; Negative Wheezes or Rales
Gastrointestinal: Soft, Non Tender, Non Distended and Normal Bowel Sounds
Genito-Urinary: Negative Suprapubic Tenderness
Skin: Warm and Dry; Negative Rash or Jaundice
Objective Data
Lab Data
Lab Results
11/06/23 07:33
11/06/23 07:33
PT 19.7 Sec (11.4-14.6) H 10/31/23 02:56
PT Cancelled 10/31/23 02:56
INR 1.65 10/31/23 02:56
INR Cancelled 10/31/23 02:56
APTT 75.0 Sec (23.4-35.0) H 11/01/23 05:24
Estimated Creat Clear 77 ml/min 11/06/23 07:33
Lactic Acid Cancelled 10/30/23 23:30
Total Bilirubin 1.1 mg/dl (0.2-1.3) 11/02/23 04:25
GGT 82 U/L (12-43) H 10/31/23 02:56
AST 44 U/L (14-36) H 11/02/23 04:25
ALT 50 U/L (0-35) H 11/02/23 04:25
Alkaline Phosphatase 174 U/L (38-126) H 11/02/23 04:25
Most recent labs reviewed.
Micro Results:
11/05/23 00:07 Urine Culture - Final
Urine NO GROWTH
10/31/23 02:56 Blood Culture - Final
Blood/Venous Klebsiella pneumoniae
Gram Stain - Final
10/30/23 19:39 Blood Culture - Final
Blood/Venous Klebsiella pneumoniae
Gram Stain - Final
10/31/23 03:35 Urine Culture - Final
Urine Klebsiella pneumoniae
10/31/23 12:12 Blood Parasites Smear - Final
Blood/Venous
10/30/23 21:57 Influenza Types A & B (FELIPE) - Final
Nasal Swab Negative for Influenza A & B, NAAT
Negative results must be combined with clinical observations
and patient history.
Nucleic Acid Amplification test (NAAT)performed on the
[employer] platform.
Care Review
Plan reviewed with: Physician (Dr Ravin ladd)
[2023-11-06] MEDS: CIPRO 500 MG PO (12:42)
--- NOTE | 2023-11-06 14:10 | CM ---
Patient seen at bedside with physician. Patient stated that she was going home with to transport. Patient with no further questions. CM will continue to follow for discharge planning needs.
Plan; home with no needs.
[2023-11-06 14:40] VITALS: BP 117/68
--- NOTE | 2023-11-06 18:18 | W.DCSUMMARY ---
Addendum entered and electronically signed by Mikki Alicia MD 11/06/23 20:32:
Read, reviewed, and agree. See same day progress note for additional details. Time spent coordinating care, DC planning, review of DC plan of care with resident, transition of care, review of records in EMR, med rec, consults, notes, d/w
consultants, nursing, family, and CM = 33 mins
Original Note:
Discharge Summary
Discharge Data
Date of Admission: 10/30/23
Date of Discharge: 11/06/23
-
Pending Results: No
Hospital Course
Primary diagnosis:
-Sepsis secondary to Genitourinary source with renal calculus
-Septic myocardium dysfunction
Secondary Diagnosis
- Essential Hypertension
- Long QT syndrome
- Anxiety
Hospital summary:
Renetta is a 57-year-old female with a past medical of history of essential hypertension who presented to the Emergency department for increased fatigue for the past 11 to 12 days. She stated that for the past 2 weeks she had not been feeling well.
A week prior she went to [facility] where she was found to have hypokalemia and received potassium before leaving against medical advise. Hypokalemia was determined to be due to hydrochlorothiazide which she discontinued. In the
emergency department at [place] she was found to have significant hypotension and was admitted to the ICU and started on Levophed. Workup revealed elevated troponin with normal Electric cardiogram, urinary tract infection and 8mm renal calculus.
Blood and urine cultures showed with Klebsiella. She was followed by cardiology, infectious disease and urology. Troponins down trended. EKG remained normal with prolonged QT. Cardiac catheterization unremarkable and application assistant suspected septic
myocardial dysfunction as the cause of her elevated troponin. Cardiology also noted volume overload secondary to sepsis resuscitation efforts and recommended patient to be put Lasix after discharge. Patient was initially put on Keflex then
switched to cefepime due to progressive leukocytosis. Patient white blood cell count now stabilized. Will continue on ciprofloxacin and outpatient. Patient has prolonged QTc at 488 ms. Infectious disease cleared use of ciprofloxacin. Urology
placed left sided ureteral stent. Hydronephrosis resolved after stent placement. Urology will follow up in outpatient to discuss stone removal.
Today, the patient is feeling well and ready to go home. She will continue on oral ciprofloxacin per infectious disease. 1 dose of Intravenous Lasix was given today. Patient will continue on Lasix orally for the next 3 days along with potassium
supplementation. It is recommended that the patient takes her weight daily. Patient will follow up in outpatient to discuss removal of her 8mm calculus. Recommend follow up BMP and CBC in one week to evaluate WBC and renal function after lasix.
Discharge Plan
-
Patient Disposition: Home (Routine Discharge)
Discharge Diagnosis/Procedures: cardiac catheterization
Diet: No restrictions and As tolerated
Activity: As tolerated
Driving Restrictions: As prior to admission
Bathing Restrictions: None
Blood Work: bmp and cbc in one week
Stand Alone Forms: DC Instructions- Cath/EP Lab
Referrals:
Radha Dixon CRNP [Family Provider] - in one week
()
Gonzalez Pichardo MD [Active] - in two to four weeks (PFT, and screening for yearly low-dose lung cancer screening)
Prescriptions:
New
furosemide [Lasix] 20 mg tablet
20 mg PO DAILY 3 Days Qty: 3 0RF
ciprofloxacin HCl 500 mg tablet
500 mg PO BID 13 Days Qty: 26 0RF
potassium chloride 20 mEq tablet extended release
20 meq PO BID 3 Days Qty: 6 0RF
Continued
acetaminophen 325 mg Tablet
650 mg PO Q3HPRN PRN (Reason: mild pain/fever)
Discontinued
potassium 99 mg Tablet
99 mg PO DAILY
Discharge Orders:
Discharge Patient (As Directed); Ordered 11/06/23
Ordered By: Samina Colin
Discharge Date and Time
Discharge Date/Time: 11/06/23 16:42
Print Language: ROMANIAN
== END 2023-11-06 16:42 | disposition home or self-care (01) | DRG 853 ==
LOC: 4 WEST ACU 22:09
PROVIDERS: Emergency Medicine; Internal Medicine; Internal Medicine Cardiovascular Disease; Physician Assistant Medical; Specialist; ADMITTING PHYSICIAN Hospitalist; ATTENDING PHYSICIAN Internal Medicine; CONSULT PHYSICIAN Student in an Organized Health Care Education/Training Program; CONSULT PHYSICIAN Surgery; EMERGENCY PHYSICIAN Emergency Medicine; FAMILY PHYSICIAN Nurse Practitioner Adult Health; OTHER PHYSICIAN Internal Medicine Cardiovascular Disease; OTHER PHYSICIAN Internal Medicine Critical Care Medicine; OTHER PHYSICIAN Psychiatry & Neurology Psychiatry
PROC: 30233N1 Transfusion of Nonautologous Red Blood Cells into Peripheral Vein, Percutaneous Approach (ICD-10-PCS; 2023-11-01)
PROC: 0T9B70Z Drainage of Bladder with Drainage Device, Via Natural or Artificial Opening (ICD-10-PCS; 2023-11-01)
PROC: 0T778DZ Dilation of Left Ureter with Intraluminal Device, Via Natural or Artificial Opening Endoscopic (ICD-10-PCS; 2023-11-01)
PROC: B2151ZZ Fluoroscopy of Left Heart using Low Osmolar Contrast (ICD-10-PCS; 2023-11-05)
PROC: B2111ZZ Fluoroscopy of Multiple Coronary Arteries using Low Osmolar Contrast (ICD-10-PCS; 2023-11-05)
PROC: 4A023N7 Measurement of Cardiac Sampling and Pressure, Left Heart, Percutaneous Approach (ICD-10-PCS; 2023-11-05)
DX: A41.59 Other Gram-negative sepsis (principal); R65.21 Severe sepsis with septic shock; N17.9 Acute kidney failure, unspecified; E87.20 Acidosis, unspecified; N13.6 Pyonephrosis; I5A Non-ischemic myocardial injury (non-traumatic); I42.9 Cardiomyopathy, unspecified; D63.8 Anemia in other chronic diseases classified elsewhere; D50.9 Iron deficiency anemia, unspecified; I10 Essential (primary) hypertension; I34.0 Nonrheumatic mitral (valve) insufficiency; I77.1 Stricture of artery; N13.9 Obstructive and reflux uropathy, unspecified; E87.6 Hypokalemia; F10.90 Alcohol use, unspecified, uncomplicated; F41.9 Anxiety disorder, unspecified; K82.8 Other specified diseases of gallbladder; I25.10 Atherosclerotic heart disease of native coronary artery without angina pectoris; E83.42 Hypomagnesemia; F17.290 Nicotine dependence, other tobacco product, uncomplicated; R94.31 Abnormal electrocardiogram [ECG] [EKG]; R04.0 Epistaxis; R74.01 Elevation of levels of liver transaminase levels; R11.2 Nausea with vomiting, unspecified; R63.0 Anorexia; R19.7 Diarrhea, unspecified; R73.9 Hyperglycemia, unspecified; E87.70 Fluid overload, unspecified; Z68.21 Body mass index [BMI] 21.0-21.9, adult; Z79.899 Other long term (current) drug therapy; Z87.09 Personal history of other diseases of the respiratory system; Z98.1 Arthrodesis status; Z88.0 Allergy status to penicillin; Z88.1 Allergy status to other antibiotic agents; Z88.5 Allergy status to narcotic agent; Z11.52 Encounter for screening for COVID-19; Z82.49 Family history of ischemic heart disease and other diseases of the circulatory system
CPT/HCPCS: 71045; 71046; 74018; 74176; 76000; 80048; 80053; 80061; 80143; 81003; 81015; 82248; 82306; 82607; 82728; 82746; 82977; 83540; 83550; 83605; 83735; 84100; 84145; 84439; 84443; 84484; 85025; 85027; 85610; 85730; 86850; 86900; 86901; 86920; 87015; 87040; 87077; 87086; 87149; 87186; 87205; 87207; 87502; 87811; 93005; 93306; 93458; 96365; 96366; 96375; 97162; 99291; C1894; C2617; J2916; P9016; Q9967

== ENCOUNTER 2023-11-27 08:04 | Day surgery (SDC) | payer OTHER, SELFPAY ==
--- NOTE | 2023-11-22 14:24 | PTCARENOTE ---
Abn ECG, Labs, CXR - Dr. Mcpherson notified, no new requests made.
--- NOTE | 2023-11-26 13:50 | PTCARENOTE ---
[facility] Labs, Dr. Mckeon notified, no further actions requested.
[2023-11-27] VITALS (8 sets, daily range): BP systolic 119–130; BP diastolic 57–85; BMI 22.2
[2023-11-27] MEDS: NORMOSOL-R 1000 IV (08:12)
[2023-11-27] MEDS: DETROL LA 4 MG PO (12:16)
[2023-11-27] MEDS: Pyridium 200 MG PO (12:16)
== END 2023-11-27 13:10 | disposition home or self-care (01) ==
LOC: SDS 08:04
PROVIDERS: ATTENDING PHYSICIAN Specialist
DX: N20.2 Calculus of kidney with calculus of ureter (principal)
CPT/HCPCS: 52353; 74420; 76000; 87086; C1758; C1894; C2617

== ENCOUNTER → 2024-07-21 09:26 | Outpatient (REF) | payer OTHER, SELFPAY | LOC: RAD 09:26 | PROVIDERS: ATTENDING PHYSICIAN Specialist; FAMILY PHYSICIAN Nurse Practitioner Adult Health | DX: N20.0 Calculus of kidney (principal) | CPT/HCPCS: 74018; 76775 ==